=== PATIENT | female | born 1985 | race Caucasian/White ===

== ENCOUNTER 2017-11-20 08:46 | Emergency (ER) | payer OTHER ==
[~2017-11-20] VITALS: Ht 167.6 cm; Wt 117.9 kg
[~2017-11-20 08:46] MED LIST: Cleocin HCl300 MG PO; GLIP5 PO; LISI5 PO; MELO7.5 PO; METF500 PO; SERT100 PO; SIMV10 PO; TRAM50 PO
[2017-11-20] MEDS ORDERED: Naprosyn500 MG PO (09:22)
[2017-11-20] MEDS ORDERED: Amoxicillin875 MG PO (09:22)
== END 2017-11-20 09:45 | disposition home or self-care (01) ==
LOC: ER 08:46
DX: K08.89 Other specified disorders of teeth and supporting structures (principal); E11.9 Type 2 diabetes mellitus without complications; F32.9 Major depressive disorder, single episode, unspecified; Z79.84 Long term (current) use of oral hypoglycemic drugs; Z79.899 Other long term (current) drug therapy
CPT/HCPCS: 99283

== ENCOUNTER 2019-05-31 06:09 | Day surgery (SDC) | payer OTHER ==
[~2019-05-31] VITALS: Ht 167.6 cm; Wt 119.7 kg
[~2019-05-31 06:09] MED LIST changes: +Aldactone50 MG PO; +Amoxicillin875 MG PO; +DOCU100 PO; +Metformin HCl1000 MG PO; +Naprosyn500 MG PO
[2019-05-31] MEDS ORDERED: Juven1 EACH (07:08)
--- NOTE | 2019-05-31 07:36 | NUR ---
05/31/[address] NOTIFIED OF [facility] 256. 5 UNITS REGULAR INSULIN SUBQ GIVEN IN PREOP PER ORDERS.
--- NOTE | 2019-05-31 08:24 | NUR ---
05/31/19 0824 China Hadley CAPILLARY BLOOD GLUCOSE 210 @ 0822 AWARE NO FURTHER ORDERS AT THIS TIME
--- NOTE | 2019-05-31 10:28 | NUR ---
05/31/19 1028 Genesis Godinez PT USING INCENTIVE SPIROMETER TO 3000, SATS 98%. PAIN 6/10 IN ABDOMEN. POSTOP BLOOD SUGAR 265, MD HOFFMAN INFORMED. PT WILL TAKE METFOMIN AND GLIPIZIDE WHEN SHE GETS HOME.
== END 2019-05-31 10:58 | disposition home or self-care (01) ==
LOC: ORSCSDS 06:09
PROVIDERS: Obstetrics & Gynecology
PROC: 0U5F4ZZ Destruction of Cul-de-sac, Percutaneous Endoscopic Approach (ICD-10-PCS; principal; 2019-05-31 07:30)
DX: N92.1 Excessive and frequent menstruation with irregular cycle (principal); N94.6 Dysmenorrhea, unspecified; R10.2 Pelvic and perineal pain; N80.3 Endometriosis of pelvic peritoneum; E11.9 Type 2 diabetes mellitus without complications; E66.01 Morbid (severe) obesity due to excess calories; Z68.41 Body mass index [BMI] 40.0-44.9, adult; Z79.899 Other long term (current) drug therapy
CPT/HCPCS: 82947; J0171; J0690; J1815; J2250; J2405; J2704; J2710; J3010; J7120

== ENCOUNTER 2019-10-10 05:50 | Day surgery (SDC) | payer OTHER ==
[2019-10-08 13:12] LABS: BASOPHILS ABSOLUTE AUTO 0.04 K/mm3 (0.00-0.23); BASOPHILS PERCENT AUTO 0 % (0-2); EOSINOPHILS ABSOLUTE AUTO 0.14 K/mm3 (0.00-0.68); EOSINOPHILS PERCENT AUTO 1 % (0-6); Hematocrit 42.5 % (33.0-51.0); Hemoglobin 13.4 g/dL (11.5-16.0); IMMATURE GRAN ABSOLUTE AUTO 0.03 K/mm3 (0.00-0.10); IMMATURE GRAN PERCENT AUTO 0 % (0-1); LYMPHOCYTES ABSOLUTE AUTO 3.01 K/mm3 (0.84-5.20); LYMPHOCYTES PERCENT AUTO 27 % (21-46); MONOCYTES ABSOLUTE AUTO 0.87 K/mm3 (0.16-1.47); MONOCYTES PERCENT AUTO 8 % (4-13); Mean Corpuscular HGB 26.4 pg (26.0-34.0); Mean Corpuscular HGB Conc 31.5 g/dL (31.5-36.5); Mean Corpuscular Volume 84 fL (80-100); Mean Platelet Volume 10.1 fL (9.1-12.4); NEUTROPHILS ABSOLUTE AUTO 7.22 K/mm3 (1.96-9.15); NEUTROPHILS PERCENT AUTO 64 % (41-73); Platelet Count 303 K/mm3 (150-400); RDW Coefficient Variation 12.6 % (11.7-14.2); RDW Standard Deviation 38.5 fL (35.1-46.3); Red Blood Cell Count 5.08 M/mm3 (3.80-5.20); White Blood Cell Count 11.31 K/mm3 (4.00-11.30)
[2019-10-08 14:12] LABS: Anion Gap 9 mmol/L (6-16); Beta HCG, Quantitative, Serum <1 mIU/mL (0-3); Blood Urea Nitrogen 15 mg/dL (8-24); Bun/Creatinine Ratio 30.7 (12.0-20.0); CO2, Blood 23 mmol/L (21-32); Calcium, Blood 8.8 mg/dL (8.5-10.1); Chloride, Blood 102 mmol/L (98-108); Creatinine, Blood 0.49 mg/dL (0.40-1.00); Glomerular Filtration Rate >60 (60-); Glucose, Blood 263 mg/dL (70-99); Sodium, Blood 134 mmol/L (136-145)
[~2019-10-10] VITALS: Ht 167.6 cm; Wt 119.7 kg
[~2019-10-10 05:50] MED LIST changes: +BASAGLAR K100 UNIT/2 SC; +BUSP5 PO; +Juven1 EACH; +TRAZ50 PO
[2019-10-10] MEDS ORDERED: Glipizide ER5 MG PO (06:21)
--- NOTE | 2019-10-10 07:19 | NUR ---
Ambulatory in Day Surgery History, Chart, Medications and Allergies reviewed before start of procedure. Patient confirms NPO status and agrees with scheduled surgery.
--- NOTE | 2019-10-10 12:45 | NUR ---
TRANSFER FROM PACU TO SURGICAL PT ARRIVED TO SURGICAL FLOOR FROM PACU VIA STRETCHER AT 1220 TODAY; S/P ROBOTIC LAVH. ABD LAP SITES X4 C/D/I WITH NO DRAINAGE NOTED. IS A/O X4 WITH VSS. DENIES CP, N/V, DYSPNEA, OR N/T. ABLE TO WIGGLE FINGERS/TOES. TOLERATING CL AT THIS TIME. S/O ATTENTIVE AT BEDSIDE. HAS CALL LIGHT IN HAND AND DEMONSTRATED APPROPRIATE USE.
--- NOTE | 2019-10-10 18:00 | NUR ---
SHIFT SUMMARY POD 0 S/P ROBOTIC LAVH. IS A/O WITH VSS. GAUZE DRESSINGS TO ABD X4 C/D/I, NO ABD OR VAGINAL DRAINAGE NOTED. REPORTS PAIN AT TOLERABLE LEVEL WITH PO MEDICATION AND HEAT THERAPY. AMBULATED IN ROOM. TOLERATING REGULAR DIET, DENIES N/V. ALVARADO IN PLACE AND DRAINING CLEAR YELLOW URINE. CURRENTLY IN BED WATCHING TV WITH S/O. WILL CONT TO MONITOR AND GIVE REPORT TO ONCOMING RN.
--- NOTE | 2019-10-10 18:53 | NUR ---
WONDERLY NOTIFIED [facility] OF 356, OKAY TO GIVE PO GLIPIZIDE NOW AND NEW ORDER FOR SLIDING SCALE OBTAINED- SEE EMAR. WILL MEDICATE PER ORDER.
[2019-10-11 04:36] LABS: BASOPHILS ABSOLUTE AUTO 0.04 K/mm3 (0.00-0.23); BASOPHILS PERCENT AUTO 0 % (0-2); EOSINOPHILS ABSOLUTE AUTO 0.05 K/mm3 (0.00-0.68); EOSINOPHILS PERCENT AUTO 0 % (0-6); Hematocrit 35.1 % (33.0-51.0); IMMATURE GRAN ABSOLUTE AUTO 0.08 K/mm3 (0.00-0.10); IMMATURE GRAN PERCENT AUTO 1 % (0-1); LYMPHOCYTES ABSOLUTE AUTO 3.34 K/mm3 (0.84-5.20); LYMPHOCYTES PERCENT AUTO 22 % (21-46); MONOCYTES ABSOLUTE AUTO 1.15 K/mm3 (0.16-1.47); MONOCYTES PERCENT AUTO 8 % (4-13); Mean Corpuscular HGB 26.6 pg (26.0-34.0); Mean Corpuscular HGB Conc 31.3 g/dL (31.5-36.5); Mean Corpuscular Volume 85 fL (80-100); Mean Platelet Volume 10.1 fL (9.1-12.4); NEUTROPHILS ABSOLUTE AUTO 10.42 K/mm3 (1.96-9.15); NEUTROPHILS PERCENT AUTO 69 % (41-73); Platelet Count 275 K/mm3 (150-400); RDW Standard Deviation 39.8 fL (35.1-46.3); Red Blood Cell Count 4.14 M/mm3 (3.80-5.20); White Blood Cell Count 15.08 K/mm3 (4.00-11.30)
--- NOTE | 2019-10-11 07:51 | NUR ---
POD 1 S/P LAVH. PT VSS T/O NIGHT. DRESSINGS CDI, PT HAD NO SIG VAGINAL BLEEDING. PAIN MGD PER EMAR W/REP RELIEF. PT MORRIS REG PO., NO C/O N/V. ALVARADO CATH D/C THIS AM, AWAITING FIRST VOID. REPORT GIVEN TO DAY RN.
[2019-10-11] MEDS ORDERED: DOCU100 PO (15:03)
[2019-10-11] MEDS ORDERED: Estradiol2 MG PO (15:03)
[2019-10-11] MEDS ORDERED: Milk Of Ma400 MG/5 M PO (15:04)
[2019-10-11] MEDS ORDERED: IBUP800 PO (15:04)
[2019-10-11] MEDS ORDERED: Percocet 5-3251 EACH PO (15:04)
[2019-10-11] MEDS ORDERED: PROM25 PO (15:05)
[2019-10-11] MEDS ORDERED: SENN187 PO (15:05)
[2019-10-11] MEDS ORDERED: SIME80CH PO (15:06)
--- NOTE | 2019-10-11 16:55 | NUR ---
DISCHARGE: PACKET PRINTED, PT EDUCATED. GIVEN SCRIPTS. PT LEFT UNIT AT ABOUT 1545 VIA WHEELCHAIR WITH NANCY ASHBY.
== END 2019-10-11 16:14 | disposition home or self-care (01) ==
LOC: ORSCMMR 05:50 → LAB 07:30 → ORSCMMR 07:30 → ORD 07:30 → SURS 12:14 → ORSCMMR 10-11 16:14
PROVIDERS: Obstetrics & Gynecology
PROC: 0UT2FZZ Resection of Bilateral Ovaries, Via Natural or Artificial Opening With Percutaneous Endoscopic Assistance (ICD-10-PCS; principal; 2019-10-10 07:30)
PROC: 8E0W4CZ Robotic Assisted Procedure of Trunk Region, Percutaneous Endoscopic Approach (ICD-10-PCS; principal; 2019-10-10 07:30)
PROC: 0UT7FZZ Resection of Bilateral Fallopian Tubes, Via Natural or Artificial Opening With Percutaneous Endoscopic Assistance (ICD-10-PCS; principal; 2019-10-10 07:30)
PROC: 0UT9FZZ Resection of Uterus, Via Natural or Artificial Opening With Percutaneous Endoscopic Assistance (ICD-10-PCS; principal; 2019-10-10 07:30)
DX: N92.0 Excessive and frequent menstruation with regular cycle (principal); N80.9 Endometriosis, unspecified; R10.2 Pelvic and perineal pain; D25.2 Subserosal leiomyoma of uterus; N83.11 Corpus luteum cyst of right ovary; Z01.818 Encounter for other preprocedural examination; I10 Essential (primary) hypertension; E78.5 Hyperlipidemia, unspecified; E11.9 Type 2 diabetes mellitus without complications; E66.01 Morbid (severe) obesity due to excess calories; Z68.41 Body mass index [BMI] 40.0-44.9, adult; Z79.899 Other long term (current) drug therapy; Z79.84 Long term (current) use of oral hypoglycemic drugs
CPT/HCPCS: 58552; S2900; 36415; 80048; 82947; 84702; 85025; 86850; 86900; 86901; 88307; J0690; J1100; J1650; J1815; J1885; J2250; J2370; J2405; J2704; J3010; J7120

== ENCOUNTER → 2020-04-01 | Outpatient (CLI) | payer OTHER ==
[~2020-04-01] MED LIST changes: +Estradiol2 MG PO; +Glipizide ER5 MG PO; +IBUP800 PO; +Milk Of Ma400 MG/5 M PO; +PROM25 PO; +Percocet 5-3251 EACH PO; +SENN187 PO; +SIME80CH PO
== END | disposition home or self-care (01) ==
LOC: LAB EV 17:57 → LAB SHORT 17:57
DX: N39.0 Urinary tract infection, site not specified (principal)
CPT/HCPCS: 87077; 87086; 87186

== ENCOUNTER 2020-12-09 19:41 | Emergency (ER) | payer OTHER ==
[~2020-12-09] VITALS: Ht 167.6 cm; Wt 117.9 kg
== END 2020-12-09 20:38 | disposition home or self-care (01) ==
LOC: ER 19:41
DX: M79.631 Pain in right forearm (principal); E11.9 Type 2 diabetes mellitus without complications; Z79.4 Long term (current) use of insulin; Z79.3 Long term (current) use of hormonal contraceptives; Z79.899 Other long term (current) drug therapy
CPT/HCPCS: 99283

== ENCOUNTER 2021-01-08 04:21 | Emergency (ER) | payer OTHER ==
[~2021-01-08] VITALS: Ht 172.7 cm; Wt 122.5 kg
[2021-01-08 04:40] LABS: Calcium, Ionized (POC) 1.07 mmol/L (1.10-1.46); Chloride (POC) 98 mmol/L (98-108); Creatinine (POC) 1.1 mg/dL (0.6-1.0); Glucose (ISTAT POC) 402 mg/dL (70-99); Hemoglobin (POC) 15.6 g/dL (12.0-16.0); Potassium (POC) 4.7 mmol/L (3.5-5.5); Sodium (POC) 132 mmol/L (135-148); Total CO2 (POC) 23 mmol/L (21-32)
== END 2021-01-08 05:35 | disposition home or self-care (01) ==
LOC: ER 04:21
PROVIDERS: Emergency Medicine
DX: E11.65 Type 2 diabetes mellitus with hyperglycemia (principal); Z79.4 Long term (current) use of insulin; Z79.899 Other long term (current) drug therapy
CPT/HCPCS: 80047; 85014; 99283

== ENCOUNTER → 2022-07-07 | Outpatient (CLI) | payer OTHER ==
[2022-07-07 19:52] LABS: Alanine Aminotransfer (ALT/SGP 23 U/L (12-78); Albumin, Blood 3.8 g/dL (3.4-5.0); Albumin/Globulin Ratio 1.1 (0.8-1.8); Alk Phos 134 U/L (50-136); Anion Gap 5 mmol/L (6-16); Aspartate Aminotrans (AST/SGOT 14 U/L (12-37); Bilirubin, Total 0.3 mg/dL (0.1-1.0); Blood Urea Nitrogen 10 mg/dL (8-24); Bun/Creatinine Ratio 19.4 (12.0-20.0); CHOL/HDL RATIO 3.6; CO2, Blood 29 mmol/L (21-32); Calcium, Blood 9.2 mg/dL (8.5-10.1); Chloride, Blood 104 mmol/L (98-108); Cholesterol 193 mg/dL (50-200); Creatinine, Blood 0.52 mg/dL (0.40-1.00); Globulin, Blood 3.5 g/dL (2.2-4.0); Glomerular Filtration Rate 123 (60-); Glucose, Blood 145 mg/dL (70-99); HDL Cholesterol 54 mg/dL (>39); Low Density Lipoprotein Chol 110 mg/dL (0-110); Potassium, Blood 3.5 mmol/L (3.5-5.5); Sodium, Blood 138 mmol/L (136-145); Total Protein, Blood 7.3 g/dL (6.4-8.2); Triglycerides 147 mg/dL (30-140); Very Low Density Lipoprot Chol 29 mg/dL (6-28)
[2022-07-09 08:13] LABS: HIV AB/P24 AG SCREEN Non Reactive (Non Reactive)
== END | disposition home or self-care (01) ==
LOC: LAB SHORT 07:05 → LAB 07:05
PROVIDERS: Nurse Practitioner Family
DX: Z11.59 Encounter for screening for other viral diseases (principal); Z13.29 Encounter for screening for other suspected endocrine disorder; F33.1 Major depressive disorder, recurrent, moderate; E78.5 Hyperlipidemia, unspecified; E55.9 Vitamin D deficiency, unspecified
CPT/HCPCS: 80053; 80061; 82306; 83036; 84443; 86803; 87389

== ENCOUNTER → 2022-07-26 | Outpatient (CLI) | payer OTHER ==
[2022-07-26 12:09] LABS: BASOPHILS ABSOLUTE AUTO 0.06 K/mm3 (0.00-0.23); BASOPHILS PERCENT AUTO 0 % (0-2); EOSINOPHILS ABSOLUTE AUTO 0.07 K/mm3 (0.00-0.68); EOSINOPHILS PERCENT AUTO 0 % (0-6); Hematocrit 41.7 % (33.0-51.0); Hemoglobin 13.6 g/dL (11.5-16.0); IMMATURE GRAN ABSOLUTE AUTO 0.07 K/mm3 (0.00-0.10); IMMATURE GRAN PERCENT AUTO 0 % (0-1); LYMPHOCYTES ABSOLUTE AUTO 1.99 K/mm3 (0.84-5.20); LYMPHOCYTES PERCENT AUTO 11 % (21-46); MONOCYTES ABSOLUTE AUTO 1.08 K/mm3 (0.16-1.47); MONOCYTES PERCENT AUTO 6 % (4-13); Mean Corpuscular HGB 26.1 pg (26.0-34.0); Mean Corpuscular HGB Conc 32.6 g/dL (31.5-36.5); Mean Corpuscular Volume 80 fL (80-100); Mean Platelet Volume 10.9 fL (9.1-12.4); NEUTROPHILS ABSOLUTE AUTO 14.89 K/mm3 (1.96-9.15); NEUTROPHILS PERCENT AUTO 82 % (41-73); Platelet Count 327 K/mm3 (150-400); RDW Coefficient Variation 13.6 % (11.7-14.2); RDW Standard Deviation 38.5 fL (35.1-46.3); Red Blood Cell Count 5.22 M/mm3 (3.80-5.20); White Blood Cell Count 18.16 K/mm3 (4.00-11.30)
[2022-07-26 12:23] LABS: Albumin, Blood 3.8 g/dL (3.4-5.0); Albumin/Globulin Ratio 0.9 (0.8-1.8); Bilirubin, Total 0.4 mg/dL (0.1-1.0); Bun/Creatinine Ratio 16.4 (12.0-20.0); Calcium, Blood 9.1 mg/dL (8.5-10.1); Creatinine, Blood 0.73 mg/dL (0.40-1.00); Globulin, Blood 4.2 g/dL (2.2-4.0); Potassium, Blood 3.9 mmol/L (3.5-5.5)
== END ==
LOC: LAB 12:05 → LAB SHORT 12:05
PROVIDERS: Physician Assistant Medical
DX: R10.31 Right lower quadrant pain (principal)
CPT/HCPCS: 80053; 85025

== ENCOUNTER 2025-05-07 00:26 | Inpatient (IN) | payer OTHER ==
[2025-05-07] VITALS (17 sets, daily range): BP systolic 65–143; BP diastolic 40–98
[~2025-05-07] VITALS: Ht 167.6 cm; Wt 117.5 kg
[2025-05-07 00:58] LABS: Hematocrit 47.9 % (33.0-51.0); Hemoglobin 15.0 g/dL (11.5-16.0); Mean Corpuscular HGB Conc 31.3 g/dL (31.5-36.5); Mean Corpuscular Volume 91 fL (80-100); NRBC ABSOLUTE 0.00 K/mm3 (0.00-0.02); NRBC Auto 0.0 /100 WBC (0.0-0.2); Platelet Count 522 K/mm3 (150-400); RDW Coefficient Variation 11.5 % (11.7-14.2); RDW Standard Deviation 38.5 fL (35.1-46.3)
[2025-05-07 01:17] LABS: BAND PERCENT MAN 5 % (0-8); BASOPHILS ABSOLUTE MAN 0.00 K/mm3 (0.00-0.23); BASOPHILS PERCENT MAN 0 % (0-2); EOSINOPHILS ABSOLUTE MAN 0.00 K/mm3 (0.00-0.68); EOSINOPHILS PERCENT MAN 0 % (0-6); LYMPHOCYTES ABSOLUTE MAN 2.98 K/mm3 (0.84-5.20); LYMPHOCYTES PERCENT MAN 7 % (21-46); METAMYELOCYTE ABSOLUTE MAN 0.42 K/mm3 (0.00-0.00); METAMYELOCYTE PERCENT MAN 1 % (0-0); MONOCYTES ABSOLUTE MAN 2.98 K/mm3 (0.16-1.47); MONOCYTES PERCENT MAN 7 % (4-13); MYELOCYTE ABSOLUTE MAN 1.27 K/mm3 (0.00-0.00); MYELOCYTE PERCENT MAN 3 % (0-0); NEUTROPHILS ABSOLUTE MAN 34.94 K/mm3 (1.96-9.15); SEG NEUTROPHILS PERCENT MAN 77 % (41-73)
[2025-05-07 01:28] LABS: Magnesium, Blood 2.2 mg/dL (1.6-2.4)
[2025-05-07 01:28] LABS: pH Blood Venous < 6.81 (7.34-7.37)
[2025-05-07 01:30] LABS: Alanine Aminotransfer (ALT/SGP 48.0 U/L (12-78); Albumin, Blood 3.1 g/dL (3.4-5.0); Aspartate Aminotrans (AST/SGOT 57.0 U/L (12-37); Blood Urea Nitrogen 21.0 mg/dL (8-24); Calcium, Blood 7.9 mg/dL (8.5-10.1); Chloride, Blood 96.0 mmol/L (98-108); Glucose, Blood 577.0 mg/dL (70-99); Potassium, Blood 4.6 mmol/L (3.5-5.5); Sodium, Blood 125.0 mmol/L (136-145)
[2025-05-07] MEDS ORDERED: Insulin Human Regular 100 UNIT in NS 100 ML IV SCH (01:45)
[2025-05-07 02:00] LABS: Albumin/Globulin Ratio 0.6 (0.8-1.8); Anion Gap 30.0 mmol/L (3-11); Bilirubin, Total 0.5 mg/dL (0.1-1.0); CO2, Blood 4.0 mmol/L (21-32); Creatinine, Blood 0.58 mg/dL (0.40-1.00); Globulin, Blood 5.0 g/dL (2.2-4.0); Total Protein, Blood 8.1 g/dL (6.4-8.2)
[2025-05-07] MEDS ORDERED: D5W-1/2NS 1,000 ML IV PRN (03:30)
--- NOTE | 2025-05-07 04:02 | NUR ---
REPORT RECEIVED FROM HEARING AID FITTERBRYAN GOINS WHO WILL BE BRINGING PT TO ICU 9 VIA RDAMARISCOTTA.
--- NOTE | 2025-05-07 04:10 | NUR ---
PT ARRIVED TO ICU RM 9 VIA GURNEY, ACCOMPANIED BY ED RN. PT A&OX4, ABLE TO FOLLOW COMMANDS AND COMMUNICATE APPROPRIATELY WITH STAFF. PT APPEARS ANXIOUS, WILL TOSS AND TURN IN BED REPEATEDLY, REQUIRING ASSISTANCE FROM STAFF SHE GETS HERSELF TANGLED IN THE LINES/CORDS. PT ON RA. SATS >95%. DENIES SOB, THOUGH KUSS[place] RESPIRATIONS PRESENT. PT ENDORSES NAUSEA, NO ACTIVE VOMITING. ABD DISTENDED, SOFT, BT HYPOACTIVE X4. PER PT, SHE HAS NOT EATEN OR DRANK ANYTHING X3 DAYS. LAST BM 05/04/25 PER PT. PER ED RN, PT HAD NOT VOIDED THOUGH REPORTED SHE FELT SHE NEEDED TO GO. PT BLADDER SCANNED AND FOUND TO HAVE >900ML OF RETAINED URINE. PT ENCOURAGED TO VOID BUT WAS UNABLE TO. RN EDUCATED PT ON NEED TO DRAIN BLADDER AND ON STRAIGHT CATHETERIZATION. PT AGREEABLE TO STRAIGHT CATH. 1,100MLS URINE DRAINED FROM PTS BLADDER VIA STRAIGHT CATH. PIV TO BILAT ACS. ON ARRIVAL TO ICU 9, PT HAD KCL INFUSING AT 200ML/HR AND INSULIN INFUSING AT 11.4 UNIT/HR. PT SHARED WITH RN THAT SHE HAS NOT BEEN MANAGING HER SUGARS NOR TAKING ANY OF HER MEDICATIONS FOR MORE THAN A YEAR NOW, DUE TO HER LOSS OF MEDICAL INSURANCE. FAMILY ACCOMPANIED PT TO HOSPITAL BUT LEFT WHEN PT WAS TRANSPORTED TO ICU. THIS RN TO CONTINUE TO MONITOR AND REPORT ANY ACUTE CHANGES TO PROVIDER.
[2025-05-07 05:00] LABS: Anion Gap 25.0 mmol/L (3-11); Blood Urea Nitrogen 22.0 mg/dL (8-24); CO2, Blood 6.0 mmol/L (21-32); Calcium, Blood 7.9 mg/dL (8.5-10.1); Chloride, Blood 97.0 mmol/L (98-108); Creatinine, Blood 0.59 mg/dL (0.40-1.00); Glucose, Blood 476.0 mg/dL (70-99); Potassium, Blood 4.4 mmol/L (3.5-5.5); Sodium, Blood 124.0 mmol/L (136-145)
[2025-05-07] MEDS ORDERED: Ondansetron HCl 2 MG / ML 2ML Vial IV PRN (05:10)
[2025-05-07] MEDS ORDERED: NS 250 ML IV PRN ×2 (05:50→10:05)
[2025-05-07 06:08] LABS: Source, Urine Clean Catch
[2025-05-07 06:12] LABS: Bilirubin, Urine Neg (Neg); Color, Urine Yellow (P-Yellow); Glucose Qualitative, Urine 4+ (Neg); Ketones, Urine 4+ (Neg); Leukocyte Esterase, Urine Neg (Neg); Protein, Urine 3+ (Neg); Specific Gravity, Urine 1.025 (1.003-1.022); Urobilinogen, Urine NORM (Normal)
[2025-05-07 06:23] LABS: White Blood Cells, Urine 0-2 /hpf (0-5)
[2025-05-07 08:19] LABS: pH Blood Venous 6.87 (7.34-7.37)
[2025-05-07 08:29] LABS: Hematocrit 45.7 % (33.0-51.0); Hemoglobin 14.6 g/dL (11.5-16.0); Mean Corpuscular HGB Conc 31.9 g/dL (31.5-36.5); Mean Corpuscular Volume 90 fL (80-100); NRBC ABSOLUTE 0.06 K/mm3 (0.00-0.02); NRBC Auto 0.1 /100 WBC (0.0-0.2); Platelet Count 309 K/mm3 (150-400); RDW Coefficient Variation 11.5 % (11.7-14.2); RDW Standard Deviation 37.4 fL (35.1-46.3)
[2025-05-07] MEDS ORDERED: Cetylpyridinium Chloride 1 EA MISC MT SCH ×2 (08:35→10:35)
[2025-05-07 08:44] LABS: Prothrombin Time Results 13.5 Sec (9.7-11.5)
[2025-05-07] MEDS ORDERED: NS 1,000 ML IV SCH ×2 (08:45→11:00)
[2025-05-07 08:54] LABS: Magnesium, Blood 1.9 mg/dL (1.6-2.4); Phosphorus, Blood 4.1 mg/dL (2.5-4.9)
[2025-05-07 08:55] LABS: BAND PERCENT MAN 9 % (0-8); BASOPHILS ABSOLUTE MAN 0.00 K/mm3 (0.00-0.23); BASOPHILS PERCENT MAN 0 % (0-2); EOSINOPHILS ABSOLUTE MAN 0.56 K/mm3 (0.00-0.68); EOSINOPHILS PERCENT MAN 1 % (0-6); LYMPHOCYTES ABSOLUTE MAN 9.62 K/mm3 (0.84-5.20); LYMPHOCYTES PERCENT MAN 17 % (21-46); METAMYELOCYTE ABSOLUTE MAN 0.56 K/mm3 (0.00-0.00); METAMYELOCYTE PERCENT MAN 1 % (0-0); MONOCYTES ABSOLUTE MAN 6.79 K/mm3 (0.16-1.47); MONOCYTES PERCENT MAN 12 % (4-13); MYELOCYTE ABSOLUTE MAN 0.56 K/mm3 (0.00-0.00); MYELOCYTE PERCENT MAN 1 % (0-0); NEUTROPHILS ABSOLUTE MAN 38.50 K/mm3 (1.96-9.15); SEG NEUTROPHILS PERCENT MAN 59 % (41-73)
[2025-05-07] MEDS ORDERED: Enoxaparin 40 MG/0.4 ML SYR SC SCH (09:00)
[2025-05-07] MEDS ORDERED: EPINEPHrine HCL 4 MG in NS 250 ML IV SCH (09:30)
[2025-05-07 09:34] LABS: U Amphetamine Screen Not Detected; U Barbituate Screen Not Detected; U Benzodiazapine Screen Not Detected; U Methamphetamine Screen Not Detected
[2025-05-07 09:35] LABS: U Buprenorphine Screen Not Detected; U Cannabinoids Screen Not Detected; U Cocaine Screen Not Detected; U Methadone Screen Not Detected; U Opiates Screen Not Detected; U Oxycodone Screen Not Detected; U Phencyclidine Screen Not Detected
--- NOTE | 2025-05-07 09:39 | NUR ---
CALLED FRIEND/ROOM MATE, ROXY RASHID AT [phone]. RCV'D INFORMATION FOR PT'S FATHER, NAREN TAPIAG [phone]. FATHER LIVES IN [place], HE IS ON HIS WAY IN NOW, ETA 1300. UPDATE PROVIDED TO ANUPAMA RE: INTUBATION AND SECOND ROUND OF CPR THIS MORNING. UPDATE PROVIDED TO CHAPLAIN CARMEN, PRIMARY RN AND SHEET METAL MECHANIC.
--- NOTE | 2025-05-07 10:00 | NUR ---
UPDATE: RECEIVED BSR AT 0700 FROM NOC RN. PT STATES SHE JUST WANTS TO SLEEP, FOLLOWS COMMANDS, AND ANSWERS QUESTIONS. PT WAS CONSTANTLY TRYING TO LAY ON STOMACH AND IV'S TO BILAT AC'S WERE POSITIONAL AND UNABLE TO INFUSE. GOT PT UNTANGLED FROM GOWN AND WIRES THEN REDRESSED IV'S AND PLACED ARM BOARDS IN HOPES PT COULD RECEIVE IVF AND INSULIN GTT. DIFFICULT TO KNOW HOW TO TITRATE INSULIN PUMPS HAD BEEN CONSTANTLY ALARMING AND STOPPED SINCE SHIFT CHANGE UNTIL 0730. ANOTHER RN WAS FINISHING UP GETTING A POWERGLIDE FOR BETTER ACCESS WHEN PT DAVID'D DOWN AND BECAME UNRESPONSIVE. SEE CODE BLUE SHEET. ROSC ACHIEVED BUT PT STARTED TO DAVID DOWN AGAIN AND ETCO2 TRENDING DOWN. DR. ERAZO AT BEDSIDE PREPARING TO PLACE CENTRAL LINE AND A-LINE WHEN PT CODED FOR THE SECOND TIME. SEE CODE BLUE SHEET. PT STARTED ON DOPAMINE, LEVOPHED, AND EPI GTT. SEE FLOWSHEET. INTUBATED DURING FIRST CODE. PALLIATIVE CARE RN TRYING TO REACH FAMILY. PT UNRESPONSIVE AFTER CODES, NO SEDATION.
[2025-05-07] MEDS ORDERED: NS 500 ML IV ONE (10:06)
[2025-05-07] MEDS ORDERED: Vasopressin 20 UNITS in NS 100 ML IV SCH (10:15)
[2025-05-07 10:21] LABS: Alanine Aminotransfer (ALT/SGP 66.0 U/L (12-78); Albumin, Blood 2.3 g/dL (3.4-5.0); Albumin/Globulin Ratio 0.6 (0.8-1.8); Anion Gap 22.0 mmol/L (3-11); Aspartate Aminotrans (AST/SGOT 104.0 U/L (12-37); Bilirubin, Total 0.6 mg/dL (0.1-1.0); Blood Urea Nitrogen 26.0 mg/dL (8-24); CO2, Blood 7.0 mmol/L (21-32); Calcium, Blood 10.2 mg/dL (8.5-10.1); Chloride, Blood 105.0 mmol/L (98-108); Creatinine, Blood 0.58 mg/dL (0.40-1.00); Globulin, Blood 4.1 g/dL (2.2-4.0); Glucose, Blood 352.0 mg/dL (70-99); Potassium, Blood 5.4 mmol/L (3.5-5.5); Sodium, Blood 129.0 mmol/L (136-145); Total Protein, Blood 6.4 g/dL (6.4-8.2)
[2025-05-07 10:49] LABS: pH Blood Arterial 6.94 (7.35-7.45)
[2025-05-07 10:52] LABS: Influenza A, PCR Negative (NEGATIVE); Influenza B, PCR Negative (NEGATIVE); Resp Syncytial Virus, PCR Negative (NEGATIVE); SARS-Cov-2 (COVID-19) PCR, MMC Negative (NEGATIVE)
[2025-05-07] MEDS ORDERED: Sodium Bicarb 8.4% 50 mEq Syringe IV ONE ×3 (10:55→15:53)
[2025-05-07] MEDS ORDERED: Pantoprazole Sodium 40 MG Injection IV SCH (11:00)
[2025-05-07] MEDS ORDERED: Sodium Bicarb 8.4% 1 MEQ/ML 50 ML Vial IV ONE (11:00)
[2025-05-07] MEDS ORDERED: Sodium Bicarb 8.4% Inj 150 MEQ in Dextrose 5% 1,000 ML IV SCH (11:00)
[2025-05-07] MEDS ORDERED: Vancomycin (Pharmacy Consult) IV SCH (11:30)
[2025-05-07] MEDS ORDERED: Amiodarone HCl 450 MG in NS 250 ML IV SCH (11:30)
[2025-05-07 11:39] LABS: Hematocrit 44.8 % (33.0-51.0); Hemoglobin 14.8 g/dL (11.5-16.0); Mean Corpuscular HGB Conc 33.0 g/dL (31.5-36.5); Mean Corpuscular Volume 87 fL (80-100); NRBC ABSOLUTE 0.00 K/mm3 (0.00-0.02); NRBC Auto 0.0 /100 WBC (0.0-0.2); Platelet Count 392 K/mm3 (150-400); RDW Coefficient Variation 11.6 % (11.7-14.2); RDW Standard Deviation 37.3 fL (35.1-46.3)
[2025-05-07] MEDS ORDERED: Hydrogen Peroxide 1.5 % Solution MT SCH ×2 (12:00)
[2025-05-07 12:22] LABS: Albumin, Blood 2.3 g/dL (3.4-5.0); Anion Gap 20 mmol/L (3-11); Blood Urea Nitrogen 27 mg/dL (8-24); CO2, Blood 9 mmol/L (21-32); Calcium, Blood 7.7 mg/dL (8.5-10.1); Chloride, Blood 106 mmol/L (98-108); Creatinine, Blood 0.57 mg/dL (0.40-1.00); Glucose, Blood 456 mg/dL (70-99); Phosphorus, Blood 3.7 mg/dL (2.5-4.9); Potassium, Blood 2.8 mmol/L (3.5-5.5); Sodium, Blood 132 mmol/L (136-145)
[2025-05-07 12:24] LABS: BAND PERCENT MAN 11 % (0-8); BASOPHILS ABSOLUTE MAN 0.59 K/mm3 (0.00-0.23); BASOPHILS PERCENT MAN 1 % (0-2); EOSINOPHILS ABSOLUTE MAN 0.00 K/mm3 (0.00-0.68); EOSINOPHILS PERCENT MAN 0 % (0-6); LYMPHOCYTES ABSOLUTE MAN 9.54 K/mm3 (0.84-5.20); LYMPHOCYTES PERCENT MAN 16 % (21-46); METAMYELOCYTE ABSOLUTE MAN 2.98 K/mm3 (0.00-0.00); METAMYELOCYTE PERCENT MAN 5 % (0-0); MONOCYTES ABSOLUTE MAN 2.98 K/mm3 (0.16-1.47); MONOCYTES PERCENT MAN 5 % (4-13); MYELOCYTE ABSOLUTE MAN 1.19 K/mm3 (0.00-0.00); MYELOCYTE PERCENT MAN 2 % (0-0); NEUTROPHILS ABSOLUTE MAN 42.33 K/mm3 (1.96-9.15); SEG NEUTROPHILS PERCENT MAN 60 % (41-73)
[2025-05-07] MEDS ORDERED: Albumin (Human) 25gm/100ml 100 ML IV SCH (12:30)
[2025-05-07 13:13] LABS: pH Blood Arterial 7.09 (7.35-7.45)
[2025-05-07] MEDS ORDERED: HYDROmorphone HCl/Pf 1MG SYR IV PRN (14:45)
[2025-05-07 14:48] LABS: Glucose, Blood 566 mg/dL (70-99)
[2025-05-07] MEDS ORDERED: Midazolam HCl 5 MG / ML 5ML Vial IV PRN (14:50)
[2025-05-07 15:13] LABS: pH Blood Arterial 7.22 (7.35-7.45)
--- NOTE | 2025-05-07 15:18 | NUR ---
SPOKE WITH DR. ERAZO ABOUT PT ON INSULIN GTT WITH LOW POTASSIUM AND ON SODIUM BICARB GTT THAT HAS D5 IN IT. DR. ERAZO WANTS TO KEEP INSULIN WHERE IT IS RIGHT NOW AND DECREASE SODIUM BICARB THEN KEEP MONITORING GLUCOSE TO MAKE SURE IT IS TRENDING DOWN.
--- NOTE | 2025-05-07 15:26 | NUR ---
Pt. is intubated and mostly not responsive. Father is present and welcomes my visit. Facilitate a short life review and establish some rapport. Other visitors arrived, Pts. father verbalized gratitude for the spiritual care visit,
[2025-05-07] MEDS ORDERED: Magnesium Sulfate 500 MG / ML 2ML Vial IV ONE (15:53)
[2025-05-07] MEDS ORDERED: Amiodarone HCl 50 MG / ML 3 ML Amp IV ONE (15:53)
[2025-05-07] MEDS ORDERED: Dextrose 25% 10ml Syringe (Infant) IV ONE (15:53)
[2025-05-07] MEDS ORDERED: Rocuronium Bromide 10 MG/ML 5ML Injection IV ONE (15:53)
[2025-05-07] MEDS ORDERED: Etomidate 2MG / ML 10ML Vial IV ONE (15:53)
[2025-05-07] MEDS ORDERED: DOPamine 400 MG/Dextrose 250 ML Bag IV ONE (15:53)
[2025-05-07 16:20] LABS: Glucose, Blood 580 mg/dL (70-99)
[2025-05-07 16:25] LABS: Glucose, Blood 592 mg/dL (70-99)
[2025-05-07 17:10] LABS: pH Blood Arterial 7.34 (7.35-7.45)
[2025-05-07 18:04] LABS: Glucose, Blood 574.0 mg/dL (70-99)
--- NOTE | 2025-05-07 18:06 | NUR ---
SUMMARY PT SUDDENLY CODED THIS AM 2 DIFFERENT TIMES. INTUBATED DURING CODE. HAS BEEN ON MULTIPLE PRESSORS THAT ARE TITRATING DOWN THE DAY GOES ON (SEE FLOWSHEET). THIS AFTERNOON PT HAS BECOME RESPONSIVE, WILL NOD YES OR NO APPROPRIATELY TO QUESTIONS, RECOGNIZES FAMILY AND FRIENDS AT BEDSIDE, MOVES EXTREMITIES ON COMMAND. PT WAS C/O OF ANXIETY AND WAS PLACED ON PROPOFOL. DENIES PAIN MULTIPLE TIMES. DID TELL DR. AMIN SHE HAD CP WHILE AT HOME. DR. AMIN WAS PRESENT AFTER CODES AND REVIEWED EKG'S WITH DR. ERAZO AT BEDSIDE. CENTRAL LINE AND A-LINE TO L GROIN. NOW TITRATING INSULIN GTT AGAIN WITH POTASSIUM REPLACEMENT INFUSING PER DR. ERAZO. DAD AT BEDSIDE UPDATED T/O.
[2025-05-07] MEDS ORDERED: Midazolam HCl 1MG / ML 2ML Vial IV PRN (18:45)
[2025-05-07 19:33] LABS: pH Blood Arterial 7.41 (7.35-7.45)
[2025-05-07 20:08] LABS: C-REACTIVE PROTEIN, EXT RANGE 8.880 mg/dL (0.000-0.300)
[2025-05-07 20:15] LABS: Albumin, Blood 2.9 g/dL (3.4-5.0); Anion Gap 13 mmol/L (3-11); Blood Urea Nitrogen 31 mg/dL (8-24); CO2, Blood 19 mmol/L (21-32); Calcium, Blood 7.3 mg/dL (8.5-10.1); Chloride, Blood 103 mmol/L (98-108); Creatinine, Blood 0.74 mg/dL (0.40-1.00); Glucose, Blood 489 mg/dL (70-99); Potassium, Blood 2.3 mmol/L (3.5-5.5); Sodium, Blood 133 mmol/L (136-145)
[2025-05-07 20:16] LABS: Phosphorus, Blood 0.5 mg/dL (2.5-4.9)
[2025-05-07] MEDS ORDERED: Potassium Phosphate Dibasic 30 MM in Dextrose 5% 500 ML IV STA (20:32)
[2025-05-07 21:42] LABS: Thyroid Stimulating Hormone 0.57 uIU/mL (0.360-4.800)
[2025-05-07 21:48] LABS: pH Blood Arterial 7.43 (7.35-7.45)
[2025-05-07 23:20] LABS: Anion Gap 12.0 mmol/L (3-11); Blood Urea Nitrogen 28.0 mg/dL (8-24); CO2, Blood 24.0 mmol/L (21-32); Calcium, Blood 6.8 mg/dL (8.5-10.1); Chloride, Blood 103.0 mmol/L (98-108); Creatinine, Blood 0.85 mg/dL (0.40-1.00); Glucose, Blood 414.0 mg/dL (70-99); Potassium, Blood 2.5 mmol/L (3.5-5.5); Sodium, Blood 136.0 mmol/L (136-145)
[2025-05-08 03:49] LABS: BASOPHILS ABSOLUTE AUTO 0.04 K/mm3 (0.00-0.23); BASOPHILS PERCENT AUTO 0 % (0-2); EOSINOPHILS ABSOLUTE AUTO 0.11 K/mm3 (0.00-0.68); EOSINOPHILS PERCENT AUTO 1 % (0-6); Hematocrit 34.6 % (33.0-51.0); Hemoglobin 12.4 g/dL (11.5-16.0); IMMATURE GRAN ABSOLUTE AUTO 0.35 K/mm3 (0.00-0.10); IMMATURE GRAN PERCENT AUTO 2 % (0-1); LYMPHOCYTES ABSOLUTE AUTO 1.66 K/mm3 (0.84-5.20); LYMPHOCYTES PERCENT AUTO 8 % (21-46); MONOCYTES ABSOLUTE AUTO 2.16 K/mm3 (0.16-1.47); MONOCYTES PERCENT AUTO 10 % (4-13); Mean Corpuscular HGB Conc 35.8 g/dL (31.5-36.5); NEUTROPHILS ABSOLUTE AUTO 17.79 K/mm3 (1.96-9.15); NEUTROPHILS PERCENT AUTO 80 % (41-73); NRBC ABSOLUTE 0.03 K/mm3 (0.00-0.02); NRBC Auto 0.1 /100 WBC (0.0-0.2); Platelet Count 271 K/mm3 (150-400); RDW Coefficient Variation 11.7 % (11.7-14.2); RDW Standard Deviation 33.9 fL (35.1-46.3)
[2025-05-08 03:52] LABS: Mean Corpuscular Volume 80 fL (80-100)
[2025-05-08 04:29] LABS: Alanine Aminotransfer (ALT/SGP 217.0 U/L (12-78); Albumin, Blood 2.5 g/dL (3.4-5.0); Albumin/Globulin Ratio 1.0 (0.8-1.8); Anion Gap 11.0 mmol/L (3-11); Aspartate Aminotrans (AST/SGOT 301.0 U/L (12-37); Bilirubin, Total 0.7 mg/dL (0.1-1.0); Blood Urea Nitrogen 27.0 mg/dL (8-24); CO2, Blood 25.0 mmol/L (21-32); Calcium, Blood 6.8 mg/dL (8.5-10.1); Chloride, Blood 103.0 mmol/L (98-108); Creatinine, Blood 0.86 mg/dL (0.40-1.00); Globulin, Blood 2.6 g/dL (2.2-4.0); Glucose, Blood 314.0 mg/dL (70-99); Phosphorus, Blood 0.5 mg/dL (2.5-4.9); Potassium, Blood 2.8 mmol/L (3.5-5.5); Sodium, Blood 136.0 mmol/L (136-145); Total Protein, Blood 5.1 g/dL (6.4-8.2)
[2025-05-08] MEDS ORDERED: Potassium Phosphate Dibasic 30 MM in Dextrose 5% 500 ML IV STA (04:44)
[2025-05-08] MEDS ORDERED: Potassium Chl 20MEQ/Water100ML 100 ML IV SCH (05:25)
[2025-05-08] MEDS ORDERED: D5W-1/2NS 1,000 ML IV PRN (05:50)
[2025-05-08] MEDS ORDERED: Calcium Chloride 10% 2,000 MG in NS 100 ML IV ONE (06:45)
[2025-05-08] MEDS ORDERED: Magnesium Sulf 2 GM/Water 50ML 50 ML IV ONE (07:50)
[2025-05-08] MEDS ORDERED: Insulin NPH 100 Unit / ML 10ML Vial SC SCH (09:00)
[2025-05-08] MEDS ORDERED: CefTRIAXone Sodium 2,000 MG in NS 100 ML IV SCH (09:00)
--- NOTE | 2025-05-08 09:26 | NUR ---
CALLED DR. DUMONT THIS AM ABOUT CRITICAL MAG LEVEL AND INCREASE OF INSULIN GTT TO 37.5 UNITS/HR. NEW ORDERS RECEIVED. DR. DUMONT AT BEDSIDE WITHIN HALF HOUR. DKA HAS RESOLVED, D5 1/2NS STOPPED, NPH STARTED, AND INSULIN GTT TURNED DOWN TO 25 UNITS/HR. WILL CONTINUE TO MONITOR GLUCOSE Q 1 HR AND TITRATE INSULIN GTT. AMIODORONE STOPPED WELL.
--- NOTE | 2025-05-08 09:52 | NUR ---
EXTUBATION Pt extubated to room air at 0951. SpO2 97%. RR 20. Pt nodding head yes/no appropriately to answer questions. Restraints removed.
[2025-05-08] MEDS ORDERED: NS 500 ML IV ONE (11:23)
--- NOTE | 2025-05-08 11:51 | NUR ---
"SPiritual Care | Family Request Met with family and bedside. Pt. is intubate and was currently under sedation. Facilitated a life review which focused upon the events that led to the Pts. admission. Listened with empathy and interest. Family is very engaged and displayed evidence of genuine support. Prayed over the Pt. and prayed for the family. Family verbalized gratitude for the spiritual care visit, and welcomed this health and wellness sales consultant to return."
[2025-05-08] MEDS ORDERED: Colchicine 0.6 MG TAB PO SCH (13:00)
[2025-05-08 13:49] LABS: pH Blood Arterial 7.54 (7.35-7.45)
[2025-05-08 14:29] LABS: Magnesium, Blood 1.6 mg/dL (1.6-2.4)
[2025-05-08 14:30] LABS: Anion Gap 11.0 mmol/L (3-11); Blood Urea Nitrogen 25.0 mg/dL (8-24); CO2, Blood 24.0 mmol/L (21-32); Calcium, Blood 7.7 mg/dL (8.5-10.1); Chloride, Blood 105.0 mmol/L (98-108); Creatinine, Blood 1.04 mg/dL (0.40-1.00); Glucose, Blood 136.0 mg/dL (70-99); Phosphorus, Blood 2.1 mg/dL (2.5-4.9); Potassium, Blood 4.0 mmol/L (3.5-5.5); Sodium, Blood 136.0 mmol/L (136-145)
[2025-05-08] MEDS ORDERED: Magnesium Sulf 2 GM/Water 50ML 50 ML IV STA (15:01)
[2025-05-08] MEDS ORDERED: Insulin Regular 100 UNIT/ML 10ML Vial SC SCH (16:00)
--- NOTE | 2025-05-08 18:31 | NUR ---
SUMMARY PT INTUBATED AND SEDATED. DURING SEDATION VACATION PT IS ABLE TO NOD YES OR NO AND MOVES ALL EXTREMITIES. PT NODDED YES TO PAIN THIS EVENING, DILAUDID GIVEN. HAVE BEEN REPLACING POTASSIUM, MAG, AND PHOS TODAY. OFF INSULIN GTT AND NOW ON SS COVERAGE AND NPH. TITRATING PRESSORS DOWN (SEE FLOWSHEET). ONLY ON LEVOPHED NOW. TUBE FEEDING STARTED AFTER PHOS WAS REPLACED.
[2025-05-08] MEDS ORDERED: Cetylpyridinium Chloride 1 EA MISC MT SCH (20:00)
[2025-05-08 20:10] LABS: Magnesium, Blood 2.0 mg/dL (1.6-2.4)
[2025-05-08 20:33] LABS: Anion Gap 15.0 mmol/L (3-11); Blood Urea Nitrogen 29.0 mg/dL (8-24); CO2, Blood 23.0 mmol/L (21-32); Calcium, Blood 8.0 mg/dL (8.5-10.1); Chloride, Blood 101.0 mmol/L (98-108); Creatinine, Blood 1.22 mg/dL (0.40-1.00); Glucose, Blood 300.0 mg/dL (70-99); Potassium, Blood 4.6 mmol/L (3.5-5.5); Sodium, Blood 134.0 mmol/L (136-145)
[2025-05-08 20:37] LABS: Phosphorus, Blood 5.1 mg/dL (2.5-4.9)
[2025-05-08] MEDS ORDERED: Insulin Human Regular 100 UNIT in NS 100 ML IV SCH (20:45)
[2025-05-08] MEDS ORDERED: Nystatin 100,000 Unit/ML Susp 5 ML UDC PO SCH (21:00)
[2025-05-08] MEDS ORDERED: Pantoprazole Sodium 40 MG Injection IV SCH (21:00)
[2025-05-08 22:13] LABS: Vancomycin, Trough 30.1 ug/mL (5.0-10.0)
[2025-05-08 23:15] LABS: SERUM, C-PEPTIDE 0.2 ng/mL (0.5-3.3)
[2025-05-09] VITALS (13 sets, daily range): BP systolic 104–137; BP diastolic 67–84
[2025-05-09 04:23] LABS: BASOPHILS ABSOLUTE AUTO 0.07 K/mm3 (0.00-0.23); BASOPHILS PERCENT AUTO 0 % (0-2); EOSINOPHILS ABSOLUTE AUTO 0.67 K/mm3 (0.00-0.68); EOSINOPHILS PERCENT AUTO 3 % (0-6); Hematocrit 33.2 % (33.0-51.0); Hemoglobin 11.6 g/dL (11.5-16.0); IMMATURE GRAN ABSOLUTE AUTO 0.18 K/mm3 (0.00-0.10); IMMATURE GRAN PERCENT AUTO 1 % (0-1); LYMPHOCYTES ABSOLUTE AUTO 3.42 K/mm3 (0.84-5.20); LYMPHOCYTES PERCENT AUTO 17 % (21-46); MONOCYTES ABSOLUTE AUTO 1.43 K/mm3 (0.16-1.47); MONOCYTES PERCENT AUTO 7 % (4-13); Mean Corpuscular HGB Conc 34.9 g/dL (31.5-36.5); Mean Corpuscular Volume 82 fL (80-100); NEUTROPHILS ABSOLUTE AUTO 13.92 K/mm3 (1.96-9.15); NEUTROPHILS PERCENT AUTO 71 % (41-73); NRBC ABSOLUTE 0.00 K/mm3 (0.00-0.02); NRBC Auto 0.0 /100 WBC (0.0-0.2); Platelet Count 181 K/mm3 (150-400); RDW Coefficient Variation 12.8 % (11.7-14.2); RDW Standard Deviation 38.3 fL (35.1-46.3)
[2025-05-09 04:43] LABS: Alanine Aminotransfer (ALT/SGP 288.0 U/L (12-78); Albumin, Blood 2.2 g/dL (3.4-5.0); Albumin/Globulin Ratio 0.8 (0.8-1.8); Anion Gap 11.0 mmol/L (3-11); Aspartate Aminotrans (AST/SGOT 237.0 U/L (12-37); Bilirubin, Total 0.4 mg/dL (0.1-1.0); Blood Urea Nitrogen 28.0 mg/dL (8-24); CO2, Blood 26.0 mmol/L (21-32); Calcium, Blood 7.5 mg/dL (8.5-10.1); Chloride, Blood 106.0 mmol/L (98-108); Creatinine, Blood 1.35 mg/dL (0.40-1.00); Globulin, Blood 2.8 g/dL (2.2-4.0); Glucose, Blood 147.0 mg/dL (70-99); Magnesium, Blood 1.9 mg/dL (1.6-2.4); Phosphorus, Blood 4.7 mg/dL (2.5-4.9); Potassium, Blood 3.5 mmol/L (3.5-5.5); Sodium, Blood 139.0 mmol/L (136-145); Total Protein, Blood 5.0 g/dL (6.4-8.2)
[2025-05-09 05:03] LABS: pH Blood Arterial 7.46 (7.35-7.45)
--- NOTE | 2025-05-09 06:38 | NUR ---
End of Shift Summary Uneventful shift, sedation maintained , levophed unable to wean at this time. Order to restart insulin drip reiceved and continous to infuse per EMR dosage. Pt recieved one dose of PRN pain medicaiton otherwise no compliants and VSS at this time.
[2025-05-09] MEDS ORDERED: Potassium Chl 20MEQ/Water100ML 100 ML IV STA (08:12)
[2025-05-09] MEDS ORDERED: D5W-1/2NS 1,000 ML IV SCH ×2 (08:25→10:50)
[2025-05-09] MEDS ORDERED: Colchicine 0.6 MG TAB PO SCH (09:00)
--- NOTE | 2025-05-09 11:09 | NUR ---
ASSUMPTION OF CARE ASSUEMD CARE OF PATIENT AT APPROXIMATELY 0700. PT RESTING IN BED, INTUBATED AND SEDATED, PROPOFOL INFUSING AT 35MCG/KG/MIN AT START OF SHIFT, TITRATED DOWN TO 25MCG/KG/MIN, PT RESTLESS IN BED, GAGGING ON TUBE, COUGHING, PULLING AGAINST RESTRAINTS. PT NOT FOLLOWING COMMANDS, MOVES EXTREMITIES EQUALLY BILATERALLY. PT MEDICATED PER EMAR WITH DILAUDID. HR 110-120'S SINUS, LEVOPHED INFUSING TO MAINTAIN MAP >65, SEE FLOWSHEET FOR TITRATIONS. ARTERIAL LINE IN PLACE TO LEFT FEMORAL. VENT SETTINGS AC/VC 16/400/8/45%, OXYGEN SATURATION >95%. ABDOMEN SOFT, BOWEL TONES ACTIVE THROGUHOUT. OG TUBE IN PLACE WITH GLUCERNA 1.2 INFUSING AT GOAL RATE OF 40MLS/HR WITH 30ML Q4H WATER FLUSH. TEMP ALVARADO IN PLACE PATENT DRAINING YELLOW URINE WITH SEDIMENT. CENTRAL LINE IN PLACE TO LEFT FEMORAL, POWERGLIDE IN PLACE TO DOMENICO SL. VENT SETTINGS PLACED ON SPONTANEOUS PER DR. DUMONT, PROPOFOL PLACED ON SB. BED IN LOWEST POSITION, CALL LIGHT WITHIN REACH, CARE CONTINUES.
[2025-05-09 11:14] LABS: BASOPHILS ABSOLUTE AUTO 0.07 K/mm3 (0.00-0.23); BASOPHILS PERCENT AUTO 0 % (0-2); EOSINOPHILS ABSOLUTE AUTO 1.18 K/mm3 (0.00-0.68); EOSINOPHILS PERCENT AUTO 6 % (0-6); Hematocrit 33.0 % (33.0-51.0); Hemoglobin 11.3 g/dL (11.5-16.0); IMMATURE GRAN ABSOLUTE AUTO 0.23 K/mm3 (0.00-0.10); IMMATURE GRAN PERCENT AUTO 1 % (0-1); LYMPHOCYTES ABSOLUTE AUTO 3.28 K/mm3 (0.84-5.20); LYMPHOCYTES PERCENT AUTO 16 % (21-46); MONOCYTES ABSOLUTE AUTO 1.42 K/mm3 (0.16-1.47); MONOCYTES PERCENT AUTO 7 % (4-13); Mean Corpuscular HGB Conc 34.2 g/dL (31.5-36.5); Mean Corpuscular Volume 84 fL (80-100); NEUTROPHILS ABSOLUTE AUTO 13.92 K/mm3 (1.96-9.15); NEUTROPHILS PERCENT AUTO 69 % (41-73); NRBC ABSOLUTE 0.00 K/mm3 (0.00-0.02); NRBC Auto 0.0 /100 WBC (0.0-0.2); Platelet Count 187 K/mm3 (150-400); RDW Coefficient Variation 12.9 % (11.7-14.2); RDW Standard Deviation 39.7 fL (35.1-46.3)
--- NOTE | 2025-05-09 11:36 | NUR ---
PT UPDATE PT EXTUBATED AT APPROXIMATELY 1130. PT PLACED ON 6LPM VIA NC, OXYGEN SATURATION >92%. CARE CONTINUES.
[2025-05-09 11:38] LABS: Alanine Aminotransfer (ALT/SGP 257.0 U/L (12-78); Albumin, Blood 2.1 g/dL (3.4-5.0); Albumin/Globulin Ratio 0.7 (0.8-1.8); Anion Gap 10.0 mmol/L (3-11); Aspartate Aminotrans (AST/SGOT 171.0 U/L (12-37); Bilirubin, Total 0.3 mg/dL (0.1-1.0); Blood Urea Nitrogen 28.0 mg/dL (8-24); CO2, Blood 26.0 mmol/L (21-32); Calcium, Blood 7.3 mg/dL (8.5-10.1); Chloride, Blood 107.0 mmol/L (98-108); Creatinine, Blood 1.41 mg/dL (0.40-1.00); Globulin, Blood 3.0 g/dL (2.2-4.0); Glucose, Blood 189.0 mg/dL (70-99); Magnesium, Blood 2.1 mg/dL (1.6-2.4); Phosphorus, Blood 3.7 mg/dL (2.5-4.9); Potassium, Blood 3.9 mmol/L (3.5-5.5); Sodium, Blood 139.0 mmol/L (136-145); Total Protein, Blood 5.1 g/dL (6.4-8.2)
[2025-05-09 14:25] LABS: PT, INHIBITOR SCREEN 18.9 sec (12.0-15.5); PT, INHIBITOR SCREEN, 1:1 MIX 14.8 sec (12.0-15.5)
--- NOTE | 2025-05-09 15:09 | NUR ---
Spiritual Care Visit. Pt. has been extubated and is currently somnolent using a BiPap. Friend/Roommate is present at bedside. Facilitated a family life review. Considered matters of health and Pt. self car. Friend displayed evidence of being supportive and also displayed evidence of agreement. Listened with interest and empathy. Friend verbalized gratitude for the spiritual care visit.
[2025-05-09 15:10] LABS: Vancomycin, Trough 27.4 ug/mL (5.0-10.0)
--- NOTE | 2025-05-09 17:36 | NUR ---
SHIFT SUMMARY PT CONTINUES TO REST IN BED, SLEEPING BUT AROUSABLE. PT VERY PAINFUL, CRYING/MOANING OUT. PT MEDICATED PER EMAR FOR CHEST PAIN. PT ANSWERS SOME QUESTIONS APPROPRIATELY, ORIENTED X3. PT FOLLOWS DIRECTION WHEN PROMPTED, MOVES EXTREMITIES EQUALLY BILATERALLY. HR 110-120'S SINUS, MAP >65. ARTERIAL LINE PULLED FROM LEFT FEMORAL, MANUAL PRESSURE HELD X15 MINUTES, CHG DRESSING APPLIED OVER SITE, NO SIGNS OF OOZING OR HEMATOMA FORMATION NOTED. PT ALTERNATING BETWEEN 4LPM VIA NC AND BIPAP 12/5 35%, OXYGEN SATURATION >90%. ABDOMEN SOFT, BOWEL TONES ACTIVE THROUGHOUT. TEMP ALVARADO IN PLACE, PATENT DRAINING YELLOW URINE WITH SEDIMENT TO GRAVITY. CENTRAL LINE IN PLACE TO LEFT FEMORAL, CHG DRESSING CHANGED. POWERGLIDE IN PLACE TO DOMENICO SL. D5 1/2 NS INFUSING AT 100MLS/HR, INSULIN DRIP INSFUSING, SEE FLOWSHEET FOR TITRATIONS. BED IN LOWEST POSITION, CALL LIGHT WITHIN REACH, CARE CONTINUES.
[2025-05-09 20:26] LABS: Anion Gap 3.0 mmol/L (3-11); Blood Urea Nitrogen 29.0 mg/dL (8-24); CO2, Blood 30.0 mmol/L (21-32); Calcium, Blood 7.8 mg/dL (8.5-10.1); Chloride, Blood 107.0 mmol/L (98-108); Creatinine, Blood 1.36 mg/dL (0.40-1.00); Glucose, Blood 178.0 mg/dL (70-99); Magnesium, Blood 2.1 mg/dL (1.6-2.4); Phosphorus, Blood 3.6 mg/dL (2.5-4.9); Potassium, Blood 3.5 mmol/L (3.5-5.5); Sodium, Blood 136.0 mmol/L (136-145)
[2025-05-09] MEDS ORDERED: Colchicine 0.6 MG TAB PT SCH (21:00)
[2025-05-10] VITALS (48 sets, daily range): BP systolic 110–143; BP diastolic 77–95
[2025-05-10 03:44] LABS: BASOPHILS ABSOLUTE AUTO 0.07 K/mm3 (0.00-0.23); BASOPHILS PERCENT AUTO 0 % (0-2); EOSINOPHILS ABSOLUTE AUTO 1.35 K/mm3 (0.00-0.68); EOSINOPHILS PERCENT AUTO 8 % (0-6); Hematocrit 31.5 % (33.0-51.0); Hemoglobin 10.4 g/dL (11.5-16.0); IMMATURE GRAN ABSOLUTE AUTO 0.10 K/mm3 (0.00-0.10); IMMATURE GRAN PERCENT AUTO 1 % (0-1); LYMPHOCYTES ABSOLUTE AUTO 3.14 K/mm3 (0.84-5.20); LYMPHOCYTES PERCENT AUTO 19 % (21-46); MONOCYTES ABSOLUTE AUTO 1.15 K/mm3 (0.16-1.47); MONOCYTES PERCENT AUTO 7 % (4-13); Mean Corpuscular HGB Conc 33.0 g/dL (31.5-36.5); Mean Corpuscular Volume 87 fL (80-100); NEUTROPHILS ABSOLUTE AUTO 10.79 K/mm3 (1.96-9.15); NEUTROPHILS PERCENT AUTO 65 % (41-73); NRBC ABSOLUTE 0.00 K/mm3 (0.00-0.02); NRBC Auto 0.0 /100 WBC (0.0-0.2); Platelet Count 165 K/mm3 (150-400); RDW Coefficient Variation 13.1 % (11.7-14.2); RDW Standard Deviation 41.4 fL (35.1-46.3)
[2025-05-10 04:03] LABS: Albumin, Blood 2.1 g/dL (3.4-5.0); Anion Gap 9 mmol/L (3-11); Blood Urea Nitrogen 27 mg/dL (8-24); CO2, Blood 28 mmol/L (21-32); Calcium, Blood 7.5 mg/dL (8.5-10.1); Chloride, Blood 106 mmol/L (98-108); Creatinine, Blood 1.40 mg/dL (0.40-1.00); Glucose, Blood 155 mg/dL (70-99); Phosphorus, Blood 2.9 mg/dL (2.5-4.9); Potassium, Blood 3.6 mmol/L (3.5-5.5); Sodium, Blood 139 mmol/L (136-145); Vancomycin, Random 21.3 ug/mL
--- NOTE | 2025-05-10 06:34 | NUR ---
End of Shift Summary No signficant events this shift. Insulin drip turned off after blood sugar less than 150. Pt AOX3 , compliants of general pain , medicated per EMR.
--- NOTE | 2025-05-10 09:36 | NUR ---
ASSUMPTION OF CARE ASSUMED CARE OF PATIENT AT APPROXIMATELY 0700. PT RESTING IN BED, ALERT, ORIENTED. PT ANSWERS QUESTIONS APPROPRIATELY AFTER BEING ASKED MULTIPLE TIMES. PT FOLLOWS DIRECTIONS WHEN PROMPTED AND MOVES EXTREMITIES EQUALLY BILATERALLY. PT VERY PAINFUL WITH STIMULATION/REPOSITIONING, MEDICATED PER EMAR. HR 90-120'S SINUS, MAP >65. PT ALTERNATING BETWEEN BIPAP 12/5 35% AND 6LPM VIA NC, OXYGEN SATURATION >90%. ABDOMEN SOFT, BOWEL TONES ACTIVE THROUGHOUT. TEMP ALVARADO IN PLACE PATENT DRAINING YELLOW URINE TO GRAVITY, SEDIMENT NOTED. CENTRAL LINE IN PLACE TO LEFT GROIN, POWERGLIDE IN PLACE TO DOMENICO SL. PT TRANSFERED TO RECLINER THIS AM WITH LIFT. PT RESTING AT THIS TIME, CARE CONTINUES.
[2025-05-10] MEDS ORDERED: Furosemide 10 MG / ML 2ML Vial IV SCH (10:00)
[2025-05-10] MEDS ORDERED: Insulin Regular 100 UNIT/ML 10ML Vial SC SCH ×2 (11:30)
--- NOTE | 2025-05-10 18:13 | NUR ---
SHIFT SUMMARY PT RESTING IN BED, PT SPENT ENTIRE SHIFT UP IN BEDSIDE RECLINER WITH WEIGHT DISTRIBUTION PAD UNDERNEATH HER. PT ALERT AND ORIENTED X4. PT ANSWERS QUESTIONS APPROPRIATLEY, FOLLOWS DIRECITON WHEN PROMPTED AND IS ABLE TO MAKE HER NEEDS KNOWN. PT MOVES EXTREMITIES EQUALLY BILATERALLY. PT PAINFUL WITH REPOSITIONING, MEDICATED PER EMAR. HR 90-120'S SINUS, MAP >65. PT ALTERNATING BETWEEN 4LPM VIA NC AND BIPAP 12/5 30%, OXYGEN SATURATION >90%. ABDOMEN SOFT, BOWEL TONES ACTIVE THROUGHOUT. TEMP ALVARADO IN PLACE PATENT DRAINING YELLOW URINE WITH SEDIMENT TO GRAIVTY. CENTRAL LINE IN PLACE TO LEFT FEMORAL SL, POWERGLIDE IN PLACE TO DOMENICO SL. BED IN LOWEST POSITION, CALL LIGHT WITHIN REACH, CARE CONTINUES.
[2025-05-10] MEDS ORDERED: Enoxaparin 40 MG/0.4 ML SYR SC ONE (20:45)
--- NOTE | 2025-05-10 20:58 | NUR ---
ASSUME CARE: BEDSIDE REPORT RECIEVED FROM MONANEJAYDA RN. PT A/Ox4 AND PLEASANT W/CARE, INITIALLY SLEEPING W/BIPAP ON, ABLE TO COME OFF BIPAP AND TAKE PM MEDS, ANSWER QUESTIONS APPROPRIATLEY AND FOLLOW COMMANDS. PT COMPLAINS OF PAIN IN THE RIGHT ARM, UNABLE TO MOVE IT IS EXTREMELELY PAINFUL, RIGHT ARM IS SWOLLEN, RED, AND HOT TO THE TOUCH, DR. DUMONT NOTIFIED, NEW ORDERS GIVEN. TEMP ALVARADO IN PLACE DRAINING TO GRAVITY. WILL UPDATE NEEDED.
[2025-05-10] MEDS ORDERED: Lactobacil 2-S.Thermo-Bifido 1 1 Cap PO SCH (21:00)
[2025-05-10] MEDS ORDERED: Insulin NPH 100 Unit / ML 10ML Vial SC SCH (21:00)
[2025-05-10] MEDS ORDERED: Colchicine 0.6 MG TAB PO SCH (21:00)
[2025-05-11] VITALS (38 sets, daily range): BP systolic 106–145; BP diastolic 70–90
[2025-05-11 04:34] LABS: BASOPHILS ABSOLUTE AUTO 0.05 K/mm3 (0.00-0.23); BASOPHILS PERCENT AUTO 0 % (0-2); EOSINOPHILS ABSOLUTE AUTO 1.15 K/mm3 (0.00-0.68); EOSINOPHILS PERCENT AUTO 9 % (0-6); Hematocrit 30.1 % (33.0-51.0); Hemoglobin 10.0 g/dL (11.5-16.0); IMMATURE GRAN ABSOLUTE AUTO 0.08 K/mm3 (0.00-0.10); IMMATURE GRAN PERCENT AUTO 1 % (0-1); LYMPHOCYTES ABSOLUTE AUTO 2.43 K/mm3 (0.84-5.20); LYMPHOCYTES PERCENT AUTO 18 % (21-46); MONOCYTES ABSOLUTE AUTO 1.12 K/mm3 (0.16-1.47); MONOCYTES PERCENT AUTO 9 % (4-13); Mean Corpuscular HGB Conc 33.2 g/dL (31.5-36.5); Mean Corpuscular Volume 87 fL (80-100); NEUTROPHILS ABSOLUTE AUTO 8.42 K/mm3 (1.96-9.15); NEUTROPHILS PERCENT AUTO 64 % (41-73); NRBC ABSOLUTE 0.00 K/mm3 (0.00-0.02); NRBC Auto 0.0 /100 WBC (0.0-0.2); Platelet Count 174 K/mm3 (150-400); RDW Coefficient Variation 12.8 % (11.7-14.2); RDW Standard Deviation 40.7 fL (35.1-46.3)
[2025-05-11 04:57] LABS: Anion Gap 8.0 mmol/L (3-11); Blood Urea Nitrogen 27.0 mg/dL (8-24); CO2, Blood 29.0 mmol/L (21-32); Calcium, Blood 7.6 mg/dL (8.5-10.1); Chloride, Blood 104.0 mmol/L (98-108); Creatinine, Blood 1.34 mg/dL (0.40-1.00); Glucose, Blood 221.0 mg/dL (70-99); Magnesium, Blood 2.0 mg/dL (1.6-2.4); Phosphorus, Blood 2.8 mg/dL (2.5-4.9); Potassium, Blood 3.5 mmol/L (3.5-5.5); Sodium, Blood 137.0 mmol/L (136-145)
--- NOTE | 2025-05-11 05:24 | NUR ---
SHIFT SUMMARY: PT A/Ox4 AND ABLE TO MAKE NEEDS KNOWN. PT ABLE TO TOLERATE BIPAP FOR MOST OF THE NIGHT W/INTERMITTENT BREAKS FOR ORAL CARE. SP02>90% ON 6L NC. SBP 130s, MAP>65, MONITOR SHOWS SR, RATE 90s. TEMP ALVARADO IN PLACE, DRAINING TO GRAVITY. PT HAS WEAK PRODUCTIVE COUGH, COMPLAINS OF SHARP PAIN W/COUGH. WILL REPORT TO ONCOMING RN.
--- NOTE | 2025-05-11 11:21 | NUR ---
ASSUMPTION OF CARE ASSUMED [facility] AT [facility]. PT RESTING IN BED, SLEEPING BUT AROUSABLE. PT ANSWERS QUESTIONS APPROPRIATELY, FOLLOWS DIRECTION WHEN PROMTPED AND IS ABLE TO MAKE HER NEEDS KNOWN. PT MOVES EXTREMITIES, RIGHT ARM PAINFUL AND MORE SWOLLEN THAN LEFT. PT UP IN RECLINER VIA LIFT. HR 90-110'S SINUS, MAP >65. PT ON 3LPM VIA NC AT START OF SHIFT, TITRATED PER OXYGEN NEEDS TO MAINTAIN OXYGEN SATURATION >90%. ABDOMEN SOFT, BOWEL TONES ACTIVE THROGUGHOUT, PT PLACED ON BED [place] FOR BM, SMALL BROWN SMEAR. ALVARADO IN PLACE PATENT DRAINING YELLOW URINE TO GRAVITY. CENTRAL LINE IN PLACE TO LEFT FEMORAL, POWERGLIDE IN PLACE TO DOMENICO SL. CALL LIGHT WITHIN REACH, CARE CONTINUES.
--- NOTE | 2025-05-11 18:58 | NUR ---
SHIFT SUMMARY/TRANSFER TO PCU NO ACUTE CHANGES THIS SHIFT. PT TRASNFERED TO PCU VIA ICU BED, TRANSFERED TO PCU BED VIA LIFT. PT REMAINED ALERT AND ORIENTED, VSS. ALL BELONGINGS TRANSFERED WITH PT.
[2025-05-12 03:57] VITALS: BP 136/80
[2025-05-12 05:15] LABS: BASOPHILS ABSOLUTE AUTO 0.04 K/mm3 (0.00-0.23); BASOPHILS PERCENT AUTO 0 % (0-2); EOSINOPHILS ABSOLUTE AUTO 1.39 K/mm3 (0.00-0.68); EOSINOPHILS PERCENT AUTO 14 % (0-6); Hematocrit 33.5 % (33.0-51.0); Hemoglobin 11.0 g/dL (11.5-16.0); IMMATURE GRAN ABSOLUTE AUTO 0.13 K/mm3 (0.00-0.10); IMMATURE GRAN PERCENT AUTO 1 % (0-1); LYMPHOCYTES ABSOLUTE AUTO 2.11 K/mm3 (0.84-5.20); LYMPHOCYTES PERCENT AUTO 21 % (21-46); MONOCYTES ABSOLUTE AUTO 1.36 K/mm3 (0.16-1.47); MONOCYTES PERCENT AUTO 13 % (4-13); Mean Corpuscular HGB Conc 32.8 g/dL (31.5-36.5); Mean Corpuscular Volume 86 fL (80-100); NEUTROPHILS ABSOLUTE AUTO 5.22 K/mm3 (1.96-9.15); NEUTROPHILS PERCENT AUTO 51 % (41-73); NRBC ABSOLUTE 0.00 K/mm3 (0.00-0.02); NRBC Auto 0.0 /100 WBC (0.0-0.2); Platelet Count 193 K/mm3 (150-400); RDW Coefficient Variation 12.1 % (11.7-14.2); RDW Standard Deviation 38.3 fL (35.1-46.3)
--- NOTE | 2025-05-12 05:34 | NUR ---
SHIFT SUMMARY PT IS A&O X 4, SLOW TO RESPOND, ABLE TO MAKE NEEDS KNOWN, MOVING ALL EXTREMITIES WITH PURPOSE, OBEYS COMMANDS, Q2 REPOSITIONING. CONTINUOUS SPO2, SPO2 GREATER THAN 92% ON 2L 02 VIA NC/ TIRATED FROM 4L O2 VIA NC AT THE START OF THIS SHIFT, LUNGS SOUND CLEAR WITH DIMMINISHED BASES, PT DENIES SOB WHILE AT REST. CONTINUOUS TELE MONITORING, SINUS HR 80-90 S, BP STABLE WITH MAP GREATER THAN 65, CAP REFILL WNL, PULSES PRESENT T/O, PT REPORTING CHEST PAIN THAT IS WORSE WITH DEEP BREATHS/ PT S/P CARDIAC ARREST 05/07 X2,BLE EDEMA. BOWEL TONES PRESENT IN ALL 4Q, PT DENIES FEELINGS OF NAUSEA, OR CONSTIPATION. ALVARADO CATH IS PATENT/DRAINING TO GRAVITY/SECURE , URINE YELLOW IN COLOR. PT REPORTS CHEST PAIN WITH DEEP BREATHING/ PT RECEIVING SCHEDULED PAIN MEDICATIONS BED LOWEST POSITION, CALL LIGHT IN REACH, AWAITING TO GIVE REPORT TO ONCOMING RN.
[2025-05-12 05:41] LABS: Alanine Aminotransfer (ALT/SGP 136.0 U/L (12-78); Albumin, Blood 2.1 g/dL (3.4-5.0); Albumin/Globulin Ratio 0.5 (0.8-1.8); Anion Gap 8.0 mmol/L (3-11); Aspartate Aminotrans (AST/SGOT 87.0 U/L (12-37); Bilirubin, Total 0.3 mg/dL (0.1-1.0); Blood Urea Nitrogen 23.0 mg/dL (8-24); CO2, Blood 31.0 mmol/L (21-32); Calcium, Blood 7.8 mg/dL (8.5-10.1); Chloride, Blood 103.0 mmol/L (98-108); Creatinine, Blood 1.22 mg/dL (0.40-1.00); Globulin, Blood 3.9 g/dL (2.2-4.0); Glucose, Blood 220.0 mg/dL (70-99); Potassium, Blood 3.1 mmol/L (3.5-5.5); Sodium, Blood 139.0 mmol/L (136-145); Total Protein, Blood 6.0 g/dL (6.4-8.2)
[2025-05-12 11:12] VITALS: BP 146/87
[2025-05-12] MEDS ORDERED: Insulin Glargine-Yfgn 100 Unit/mL 3 ML SYR SC SCH (12:00)
[2025-05-12 12:51] LABS: Anion Gap 7.0 mmol/L (3-11); Blood Urea Nitrogen 22.0 mg/dL (8-24); CO2, Blood 31.0 mmol/L (21-32); Calcium, Blood 8.2 mg/dL (8.5-10.1); Chloride, Blood 102.0 mmol/L (98-108); Creatinine, Blood 1.15 mg/dL (0.40-1.00); Glucose, Blood 199.0 mg/dL (70-99); Potassium, Blood 3.5 mmol/L (3.5-5.5); Sodium, Blood 136.0 mmol/L (136-145)
[2025-05-12 15:11] VITALS: BP 147/98
[2025-05-12] MEDS ORDERED: Insulin Human Lispro 100 Units/ML 3ML Syringe SC SCH ×2 (16:30)
--- NOTE | 2025-05-12 17:58 | NUR ---
SHIFT SUMMARY; ASSUMED CARE AT 0700. A/A/OX4, SLOW TO ANSWER QUESTIONS AT TIMES BUT ANSWERS APPROPRIATLY. 1.5L 02 VIA NC, ATTEMPTED TO TITRATE DOWN, WHILE SLEEPING DSATS TO 85%. SATS IMPROVED TO 95% WHEN PLACED BACK ON 1.5L NC. ALVARADO IN PLACE DRAINING TO GRAVITY. UP TO RECLINER CHAIR WITH OT, SITS IN RECLINER ALL OF SHIFT. ELBOWS FLOATED, REPOSITIONED Q2. FAMILY AT BEDSIDE VISITING. PLEASANT AND COOPERATIVE WITH CARE. VSS, WILL CONTINUE TO MONITOR AND TREAT UNTIL REPORT GIVEN TO NOC SHIFT RN.
[2025-05-12 20:36] VITALS: BP 131/79
[2025-05-13 02:04] VITALS: BP 160/91
[2025-05-13 03:27] VITALS: BP 163/91
[2025-05-13 07:35] VITALS: BP 150/92
[2025-05-13 10:56] LABS: BASOPHILS ABSOLUTE AUTO 0.06 K/mm3 (0.00-0.23); BASOPHILS PERCENT AUTO 1 % (0-2); EOSINOPHILS ABSOLUTE AUTO 1.73 K/mm3 (0.00-0.68); EOSINOPHILS PERCENT AUTO 19 % (0-6); Hematocrit 36.1 % (33.0-51.0); Hemoglobin 11.7 g/dL (11.5-16.0); IMMATURE GRAN ABSOLUTE AUTO 0.14 K/mm3 (0.00-0.10); IMMATURE GRAN PERCENT AUTO 2 % (0-1); LYMPHOCYTES ABSOLUTE AUTO 2.47 K/mm3 (0.84-5.20); LYMPHOCYTES PERCENT AUTO 27 % (21-46); MONOCYTES ABSOLUTE AUTO 1.36 K/mm3 (0.16-1.47); MONOCYTES PERCENT AUTO 15 % (4-13); Mean Corpuscular HGB Conc 32.4 g/dL (31.5-36.5); Mean Corpuscular Volume 90 fL (80-100); NEUTROPHILS ABSOLUTE AUTO 3.34 K/mm3 (1.96-9.15); NEUTROPHILS PERCENT AUTO 37 % (41-73); NRBC ABSOLUTE 0.00 K/mm3 (0.00-0.02); NRBC Auto 0.0 /100 WBC (0.0-0.2); Platelet Count 193 K/mm3 (150-400); RDW Coefficient Variation 12.2 % (11.7-14.2); RDW Standard Deviation 39.6 fL (35.1-46.3)
[2025-05-13 11:14] LABS: Anion Gap 7.0 mmol/L (3-11); Blood Urea Nitrogen 17.0 mg/dL (8-24); CO2, Blood 28.0 mmol/L (21-32); Calcium, Blood 7.7 mg/dL (8.5-10.1); Chloride, Blood 107.0 mmol/L (98-108); Creatinine, Blood 1.12 mg/dL (0.40-1.00); Glucose, Blood 147.0 mg/dL (70-99); Potassium, Blood 3.1 mmol/L (3.5-5.5); Sodium, Blood 139.0 mmol/L (136-145)
--- NOTE | 2025-05-13 16:01 | NUR ---
PATIENT TRANSFERRED FROM PCU TO MEDICAL VIA WHEELCHAIR AND STAFF ASSIST. PT ALERT AND ORIENTED WITH FAMILY AT BEDSIDE. PATIENT ORIENTED TO ROOM, CALL LIGHT AND WHEN TO CALL. PATIENT VERBALLY AGREED AND UNDERSTOOD. RESTING IN BED, PT EVALUATED PATIENT AND ENCOURAGES PATIENT TO GET TO RECLINER AND BEDSIDE COMMODE.
[2025-05-13 16:07] VITALS: BP 154/95
[2025-05-13 21:16] VITALS: BP 165/94
[2025-05-14 04:45] VITALS: BP 157/93
--- NOTE | 2025-05-14 06:20 | NUR ---
Shift Summary No acute changes. Pt placed on cont. O2 monitor as ordered. Weaned down to 2L O2 via NC, no desaturation events while it was on. While asleep her NC slipped off and she did desat down to 86%. She is AOx4, 1 assist to the BR with a FWW.
[2025-05-14 07:42] VITALS: BP 159/90
[2025-05-14 07:48] LABS: Anion Gap 10.0 mmol/L (3-11); Blood Urea Nitrogen 16.0 mg/dL (8-24); CO2, Blood 27.0 mmol/L (21-32); Calcium, Blood 8.1 mg/dL (8.5-10.1); Chloride, Blood 106.0 mmol/L (98-108); Creatinine, Blood 1.09 mg/dL (0.40-1.00); Glucose, Blood 134.0 mg/dL (70-99); Magnesium, Blood 2.0 mg/dL (1.6-2.4); Potassium, Blood 3.2 mmol/L (3.5-5.5); Sodium, Blood 140.0 mmol/L (136-145)
[2025-05-14 15:42] VITALS: BP 172/102
[2025-05-14 17:52] VITALS: BP 174/100
--- NOTE | 2025-05-14 18:20 | NUR ---
Spiritual Care Visit. Pt. is awake in bed and welcomes my visit. Pt. is pleasant. Facilitate an update and inquire in a more focused manner reagarding matters of ke and belief. Pt. verbalizes that her ke is not defined by the muslim structures of our world. Listen with interest and empathy. The Pt. welcomes prayer. Prayed with Pt. Pt. displays evidence of awareness and engagement. Pt. verbalizes an expectation to be transferred to a rehab facility before going home. Pt. verbalized gratitude for the spiritual care visit.
--- NOTE | 2025-05-14 19:30 | NUR ---
ASSUMED PT CARE 1545, PT PLEASANT COOP A/O, LYING IN BED NO DISTRESS NOTED. BP ELEVATED, REQUEST JOE RN TO RECHECK, PT SOME ANX. NO OTHER CONCERNS NOTED, BED IN LOW POSITION, CALL LITE IN REACH, CALLS APPROP
[2025-05-14 20:27] VITALS: BP 156/86
[2025-05-15 04:48] VITALS: BP 160/91
[2025-05-15 05:52] LABS: Hematocrit 33.3 % (33.0-51.0); Hemoglobin 10.9 g/dL (11.5-16.0); Mean Corpuscular HGB Conc 32.7 g/dL (31.5-36.5); Mean Corpuscular Volume 87 fL (80-100); NRBC ABSOLUTE 0.00 K/mm3 (0.00-0.02); NRBC Auto 0.0 /100 WBC (0.0-0.2); Platelet Count 244 K/mm3 (150-400); RDW Coefficient Variation 12.4 % (11.7-14.2); RDW Standard Deviation 38.6 fL (35.1-46.3)
[2025-05-15 06:17] LABS: Anion Gap 9.0 mmol/L (3-11); Blood Urea Nitrogen 17.0 mg/dL (8-24); CO2, Blood 26.0 mmol/L (21-32); Calcium, Blood 7.8 mg/dL (8.5-10.1); Chloride, Blood 105.0 mmol/L (98-108); Creatinine, Blood 1.24 mg/dL (0.40-1.00); Glucose, Blood 228.0 mg/dL (70-99); Potassium, Blood 3.4 mmol/L (3.5-5.5); Sodium, Blood 137.0 mmol/L (136-145)
[2025-05-15 06:23] LABS: BASOPHILS ABSOLUTE MAN 0.07 K/mm3 (0.00-0.23); BASOPHILS PERCENT MAN 1 % (0-2); EOSINOPHILS ABSOLUTE MAN 1.32 K/mm3 (0.00-0.68); EOSINOPHILS PERCENT MAN 17 % (0-6); LYMPHOCYTES ABSOLUTE MAN 2.18 K/mm3 (0.84-5.20); LYMPHOCYTES PERCENT MAN 28 % (21-46); MONOCYTES ABSOLUTE MAN 1.40 K/mm3 (0.16-1.47); MONOCYTES PERCENT MAN 18 % (4-13); NEUTROPHILS ABSOLUTE MAN 2.72 K/mm3 (1.96-9.15); PLASMA CELL ABSOLUTE MAN 0.07 K/mm3 (0.00-0.00); PLASMA CELLS PERCENT MAN 1 % (0-0); SEG NEUTROPHILS PERCENT MAN 35 % (41-73)
--- NOTE | 2025-05-15 06:47 | NUR ---
SHIFT SUMMARY: Pt is admitted for DKA and is a full code. Is alert and able to make needs known. ADLs have been SBA. she has stated that pain has been between 3-4 in the sternum. When offered PRN pain management she stated that she would let this LN know when it was time. Power glide to left upper arm is patent with dressing that is CDI.
[2025-05-15 07:22] VITALS: BP 163/94
[2025-05-15] MEDS ORDERED: Insulin Glargine-Yfgn 100 Unit/mL 3 ML SYR SC SCH (09:00)
[2025-05-15 14:32] VITALS: BP 151/93
--- NOTE | 2025-05-15 17:58 | NUR ---
Spiritual Care Attempted. Pt. is Somnolent and does not respond to her name when I call to her. Will remain available to Pt.
--- NOTE | 2025-05-15 18:35 | NUR ---
NO CHANGES, ALERT AND ORIENTED, X3, WORKED WITH PT/OT, MEDICATED FOR PAIN WITH TYLENOL, CALL LIGHT WITH IN REACH, COVERED BS, WILL RELAY TO PM RN
[2025-05-15 20:18] VITALS: BP 151/88
[2025-05-15] MEDS ORDERED: Enoxaparin 40 MG/0.4 ML SYR SC SCH (21:00)
[2025-05-16 04:44] VITALS: BP 155/80
[2025-05-16 05:59] LABS: Hematocrit 34.7 % (33.0-51.0); Hemoglobin 11.1 g/dL (11.5-16.0); Mean Corpuscular HGB Conc 32.0 g/dL (31.5-36.5); Mean Corpuscular Volume 88 fL (80-100); NRBC ABSOLUTE 0.00 K/mm3 (0.00-0.02); NRBC Auto 0.0 /100 WBC (0.0-0.2); Platelet Count 240 K/mm3 (150-400); RDW Coefficient Variation 12.4 % (11.7-14.2); RDW Standard Deviation 39.4 fL (35.1-46.3)
--- NOTE | 2025-05-16 06:19 | NUR ---
SHIFT SUMMARY: Pt is admitted for DKA and is a full code. Is alert and able to make needs known. ADLs have been SBA. she has stated that pain has been between 3-4 in the sternum. pain was managed with PRN medication. power glide to left upper arm is patent with dressing that is CDI.
[2025-05-16 06:27] LABS: Alanine Aminotransfer (ALT/SGP 112.0 U/L (12-78); Albumin, Blood 2.4 g/dL (3.4-5.0); Albumin/Globulin Ratio 0.6 (0.8-1.8); Anion Gap 8.0 mmol/L (3-11); Aspartate Aminotrans (AST/SGOT 73.0 U/L (12-37); Bilirubin, Total 0.3 mg/dL (0.1-1.0); Blood Urea Nitrogen 13.0 mg/dL (8-24); CO2, Blood 27.0 mmol/L (21-32); Calcium, Blood 8.2 mg/dL (8.5-10.1); Chloride, Blood 107.0 mmol/L (98-108); Creatinine, Blood 1.11 mg/dL (0.40-1.00); Globulin, Blood 3.8 g/dL (2.2-4.0); Glucose, Blood 185.0 mg/dL (70-99); Phosphorus, Blood 3.6 mg/dL (2.5-4.9); Potassium, Blood 3.5 mmol/L (3.5-5.5); Sodium, Blood 138.0 mmol/L (136-145); Total Protein, Blood 6.2 g/dL (6.4-8.2)
[2025-05-16 06:34] LABS: BAND PERCENT MAN 1 % (0-8); BASOPHILS ABSOLUTE MAN 0.00 K/mm3 (0.00-0.23); BASOPHILS PERCENT MAN 0 % (0-2); EOSINOPHILS ABSOLUTE MAN 1.64 K/mm3 (0.00-0.68); EOSINOPHILS PERCENT MAN 20 % (0-6); LYMPHOCYTES ABSOLUTE MAN 1.89 K/mm3 (0.84-5.20); LYMPHOCYTES PERCENT MAN 23 % (21-46); MONOCYTES ABSOLUTE MAN 1.23 K/mm3 (0.16-1.47); MONOCYTES PERCENT MAN 15 % (4-13); NEUTROPHILS ABSOLUTE MAN 3.45 K/mm3 (1.96-9.15); SEG NEUTROPHILS PERCENT MAN 41 % (41-73)
[2025-05-16 07:16] VITALS: BP 149/95
[2025-05-16] MEDS ORDERED: Insulin Glargine-Yfgn 100 Unit/mL 3 ML SYR SC SCH (09:00)
--- NOTE | 2025-05-16 13:28 | NUR ---
PATIENT OXYGEN REMAINS IN THE JACKIE TO HIGH 90'S. AMBULATED TO BATHROOM AND BACK TO BED WITH LEVELS AT 96% . METER TURNED DOWN TO 1 LPM VIA NASAL CANNULA. WILL CONTINUE TO MONITOR
--- NOTE | 2025-05-16 14:30 | NUR ---
PATIENT SITING IN BED WITH OXYGEN AT 98%. TURNED OXYGEN OFF. WILL EVALUATE.
--- NOTE | 2025-05-16 17:55 | NUR ---
Spiritual Care Attempted Pt. is somnolent. Will remain available to the Pt.
--- NOTE | 2025-05-16 18:10 | NUR ---
PATIENT ALERT AND HAD NO CONCERNS TODAY ASIDE FROM UNKNOWING IF SHE WILL BE GOING TO REHAB OR HOME WITH HOME HEALTH. PATIENT WEANED FROM O2. SLEEPING BEFORE DINNER AND MAINTAINING LEVELS IN THE LOW 90'S. PATIENT AROUSES EASILY. CALL LIGHT WITHIN REACH AND BED IN LOW POSITION.
[2025-05-16 20:08] VITALS: BP 156/89
--- NOTE | 2025-05-17 04:51 | NUR ---
PT STS HER UPPER BACK IS HURTING 8/10 PAIN. PT GIVEN TYLENOL PER EMAR AND A HEATING PAD. WILL UPDATE PT RN UPON HIS RETURN.
[2025-05-17 05:17] VITALS: BP 165/91
[2025-05-17 06:15] LABS: Anion Gap 10.0 mmol/L (3-11); Blood Urea Nitrogen 12.0 mg/dL (8-24); CO2, Blood 25.0 mmol/L (21-32); Calcium, Blood 7.8 mg/dL (8.5-10.1); Chloride, Blood 109.0 mmol/L (98-108); Creatinine, Blood 1.15 mg/dL (0.40-1.00); Glucose, Blood 128.0 mg/dL (70-99); Potassium, Blood 3.7 mmol/L (3.5-5.5); Sodium, Blood 140.0 mmol/L (136-145)
[2025-05-17 06:25] LABS: BASOPHILS ABSOLUTE AUTO 0.05 K/mm3 (0.00-0.23); BASOPHILS PERCENT AUTO 1 % (0-2); EOSINOPHILS ABSOLUTE AUTO 0.86 K/mm3 (0.00-0.68); EOSINOPHILS PERCENT AUTO 11 % (0-6); Hematocrit 38.4 % (33.0-51.0); Hemoglobin 12.2 g/dL (11.5-16.0); IMMATURE GRAN ABSOLUTE AUTO 0.08 K/mm3 (0.00-0.10); IMMATURE GRAN PERCENT AUTO 1 % (0-1); LYMPHOCYTES ABSOLUTE AUTO 1.75 K/mm3 (0.84-5.20); LYMPHOCYTES PERCENT AUTO 22 % (21-46); MONOCYTES ABSOLUTE AUTO 0.80 K/mm3 (0.16-1.47); MONOCYTES PERCENT AUTO 10 % (4-13); Mean Corpuscular HGB Conc 31.8 g/dL (31.5-36.5); Mean Corpuscular Volume 89 fL (80-100); NEUTROPHILS ABSOLUTE AUTO 4.44 K/mm3 (1.96-9.15); NEUTROPHILS PERCENT AUTO 56 % (41-73); NRBC ABSOLUTE 0.00 K/mm3 (0.00-0.02); NRBC Auto 0.0 /100 WBC (0.0-0.2); Platelet Count 251 K/mm3 (150-400); RDW Coefficient Variation 12.3 % (11.7-14.2); RDW Standard Deviation 39.7 fL (35.1-46.3)
--- NOTE | 2025-05-17 06:34 | NUR ---
FLOOR TILING PROFESSIONAL SUMMARY VSS. UP WITH ASSIST AND WALKER TO BATHROOM. ALERT AND ORIENTED X 4. HAS CONTINUOUS PULSE OX O2 AT 1L/MIN AT NOCT WHEN DESATING. ABLE TO REPOSITOIN SELF IN BED WITHOUT ASSIST. DENIED CHEST PAIN WHEN ASKED. RESPS EVEN. HAS BEEN RESTING QUIETLY WITH FEW INTERRUPTIONS. CALL LIGHT IN REACH, RAILS UP X 2 AND BED IN LOW POSITION FOR SAFETY. WILL CONTINUE TO MONITOR
[2025-05-17 08:05] VITALS: BP 156/80
[2025-05-17] MEDS ORDERED: Insulin Human Lispro 100 Units/ML 3ML Syringe SC SCH (08:30)
[2025-05-17 16:07] VITALS: BP 146/79
--- NOTE | 2025-05-17 17:54 | NUR ---
SHIFT SUMMARY: A&OX4 THROUGHOUT SHIFT, BUT PT APPEARS TO BE WITHDRAWN. PLEASANT AND COOPERATIVE. AMBULATES IN ROOM WITH STAFF. MEDICATED PER EMAR. NO ACUTE EVENTS THIS SHIFT. HOB ELEVATED FOR DINNER. BED LOCKED AND IN THE LOWEST POSITION. CALL LT WITHIN REACH.
[2025-05-17 19:35] VITALS: BP 161/91
[2025-05-17] MEDS ORDERED: Polyethylene Glycol 3350 17 gm PO PRN (20:00)
[2025-05-17] MEDS ORDERED: Polyethylene Glycol 3350 17 gm PO ONE (20:00)
--- NOTE | 2025-05-17 20:32 | NUR ---
IV PROTONIX AND BOWEL REGIMEN PATIENT EATING/SWALLOWING GOOD, HOWEVER, LAST GOOD BM WAS 05/[address] JAYESH GOMEZ TO START PATIENT ON A BOWEL REGIMEN. ALSO INQUIRED ABOUT CHANGING PROTONIX TO PO INSTEAD OF IV. DR. GOMZE WILL PUT IN ORDERS.
[2025-05-18 04:54] VITALS: BP 159/92
[2025-05-18 07:06] VITALS: BP 153/83
[2025-05-18 07:11] LABS: BASOPHILS ABSOLUTE AUTO 0.04 K/mm3 (0.00-0.23); BASOPHILS PERCENT AUTO 1 % (0-2); EOSINOPHILS ABSOLUTE AUTO 0.43 K/mm3 (0.00-0.68); EOSINOPHILS PERCENT AUTO 5 % (0-6); Hematocrit 33.5 % (33.0-51.0); Hemoglobin 10.8 g/dL (11.5-16.0); IMMATURE GRAN ABSOLUTE AUTO 0.06 K/mm3 (0.00-0.10); IMMATURE GRAN PERCENT AUTO 1 % (0-1); LYMPHOCYTES ABSOLUTE AUTO 2.10 K/mm3 (0.84-5.20); LYMPHOCYTES PERCENT AUTO 25 % (21-46); MONOCYTES ABSOLUTE AUTO 1.23 K/mm3 (0.16-1.47); MONOCYTES PERCENT AUTO 15 % (4-13); Mean Corpuscular HGB Conc 32.2 g/dL (31.5-36.5); Mean Corpuscular Volume 88 fL (80-100); NEUTROPHILS ABSOLUTE AUTO 4.41 K/mm3 (1.96-9.15); NEUTROPHILS PERCENT AUTO 53 % (41-73); NRBC ABSOLUTE 0.00 K/mm3 (0.00-0.02); NRBC Auto 0.0 /100 WBC (0.0-0.2); Platelet Count 241 K/mm3 (150-400); RDW Coefficient Variation 12.8 % (11.7-14.2); RDW Standard Deviation 40.9 fL (35.1-46.3)
[2025-05-18 07:24] LABS: Anion Gap 9.0 mmol/L (3-11); Blood Urea Nitrogen 13.0 mg/dL (8-24); CO2, Blood 25.0 mmol/L (21-32); Calcium, Blood 7.8 mg/dL (8.5-10.1); Chloride, Blood 108.0 mmol/L (98-108); Creatinine, Blood 1.15 mg/dL (0.40-1.00); Glucose, Blood 117.0 mg/dL (70-99); Potassium, Blood 3.2 mmol/L (3.5-5.5); Sodium, Blood 139.0 mmol/L (136-145)
--- NOTE | 2025-05-18 07:31 | NUR ---
Shift Summary AOx4. Pleasant. Cooperative. Up w/ 1PA FWW to bathroom. C/O sternum pain from providing resuscitation, medicated with tylenol and scheduled med with some relief. Patient is having nonproductive dry cough. Using incentive spirometer with reminders. Breathing is shallow as it hurts to take deep breaths. No bm yet this shift. Consider adding additional bowel meds to her current regimen. Ambulation has been encouraged to assist with gi motility.
[2025-05-18] MEDS ORDERED: Lidocaine 4% 1 Patch TOP SCH (11:10)
[2025-05-18] MEDS ORDERED: DEXTROMETHORPHAN/BENZOCAINE 1 EACH LOZENGE MT PRN (12:15)
[2025-05-18 15:47] VITALS: BP 153/86
--- NOTE | 2025-05-18 17:40 | NUR ---
SHIFT SUMMARY PT A&OX4, VSS, RA, SBA WITH FWW TO BATHROOM. 1 LG BM THIS SHIFT. PT C/O STERNAL PAIN R/T PREVIOUS CHEST COMPRESSIONS, SOME RELIEF WITH TYLENOL, LIDOCAIN PATCH, AND SCEDULED PAIN MED. PT HAS WEAK COUGH, ENCOURAGED TO DEEP BREATH AND US IS, COUGH DROPS PROVIDED. AWAITING PT TO BE ABLE TO ACCESS OUT PATIENT MEDICATIONS AND POSSIBLE SNF OR HOME HEALTH TO [place].
[2025-05-18 19:43] VITALS: BP 148/90
[2025-05-19 02:34] VITALS: BP 179/107
[2025-05-19 02:36] VITALS: BP 176/93
--- NOTE | 2025-05-19 02:58 | NUR ---
SEVERE STERNUM PAIN Patient went to the bathroom, returned to bed, and laid herself back down a little too rough as she had anticipated the HOB being higher than it actually was. Because of this, she is in tears. Provided ice pack and gave scheduled and PRN meds with only slight improvement. Called Dr. Cr Black and obtained an order to give 1 TABLET 5/325 [place] PO ONCE for severe pain.
[2025-05-19] MEDS ORDERED: HYDROcodone 5-APAP 325 TAB PO ONE (03:00)
[2025-05-19 05:18] LABS: BASOPHILS ABSOLUTE AUTO 0.05 K/mm3 (0.00-0.23); BASOPHILS PERCENT AUTO 1 % (0-2); EOSINOPHILS ABSOLUTE AUTO 0.46 K/mm3 (0.00-0.68); EOSINOPHILS PERCENT AUTO 6 % (0-6); Hematocrit 33.2 % (33.0-51.0); Hemoglobin 10.9 g/dL (11.5-16.0); IMMATURE GRAN ABSOLUTE AUTO 0.03 K/mm3 (0.00-0.10); IMMATURE GRAN PERCENT AUTO 0 % (0-1); LYMPHOCYTES ABSOLUTE AUTO 1.82 K/mm3 (0.84-5.20); LYMPHOCYTES PERCENT AUTO 25 % (21-46); MONOCYTES ABSOLUTE AUTO 1.01 K/mm3 (0.16-1.47); MONOCYTES PERCENT AUTO 14 % (4-13); Mean Corpuscular HGB Conc 32.8 g/dL (31.5-36.5); Mean Corpuscular Volume 89 fL (80-100); NEUTROPHILS ABSOLUTE AUTO 3.88 K/mm3 (1.96-9.15); NEUTROPHILS PERCENT AUTO 54 % (41-73); NRBC ABSOLUTE 0.00 K/mm3 (0.00-0.02); NRBC Auto 0.0 /100 WBC (0.0-0.2); Platelet Count 226 K/mm3 (150-400); RDW Coefficient Variation 12.8 % (11.7-14.2); RDW Standard Deviation 41.4 fL (35.1-46.3)
[2025-05-19 05:30] VITALS: BP 161/94
--- NOTE | 2025-05-19 05:55 | NUR ---
Shift Summary AOx4. Very cooperative with care. Had to get an order for one-time dose of [place] d/t severe sternum pain (see previous note) which helped tremendously. Patient and I had a discussion about pain management and patient, tearful and with a quavering voice, expressed lack of adequate pain control with the current pain regimen. She is also fearful that if she even wojciech up the idea, the stigma surrounding narcotics would follow her. Advised to discuss concern with her provider as that is the only way she will get any kind of answer. 1PA w/ FWW to bathroom. SCD's on. Last BM 05/18. Otherwise, patient had an uneventful night.
[2025-05-19 06:00] LABS: Anion Gap 9.0 mmol/L (3-11); Blood Urea Nitrogen 12.0 mg/dL (8-24); CO2, Blood 26.0 mmol/L (21-32); Calcium, Blood 8.2 mg/dL (8.5-10.1); Chloride, Blood 107.0 mmol/L (98-108); Creatinine, Blood 1.09 mg/dL (0.40-1.00); Glucose, Blood 172.0 mg/dL (70-99); Potassium, Blood 3.5 mmol/L (3.5-5.5); Sodium, Blood 138.0 mmol/L (136-145)
[2025-05-19 07:35] VITALS: BP 158/97
--- NOTE | 2025-05-19 11:00 | NUR ---
SUPPORTIVE VISIT: MET WITH PT'S SIGNIFICANT OTHER AND SO'S MOTHER AT PT'S BEDSIDE. PT RELUCTANT TO PARTICIPATE IN CONVERSATION. FAMILY EXPRESSED FRUSTRATION RE: PT'S NONCOMPLIANCE WITH MEDICATIONS AND "NOW HER MEDS ARE GOING TO BE ONVER $900 A MONTH." THEY REPORT FRUSTRATION WITH THE CARE GAP FROM ANTICIPATED DISCHARGE HOME AND WHEN THEY EXPECT OHP WILL START ON 05-26-25. SO'S MOTHER SHOWING SIGNS OF CAREGIVER FATIGUE SHE IS THE ONLY MEDICALLY STABLE PERSON OUT OF 4 IN THE HOUSE. "I AM THE ONLY ONE TO TAKE CARE OF ALL OF THEM. LOOK, MY DAUGHTER CAN BARELY WALK AND NOW JAYDA CAN'T HELP. THEY HAVE NO MONEY COMING IN." THERAPUTIC LISTENING. CM REPORTS THEY ARE WORKING ON RESOURCES FOR PT AND FAMILY. PC TO REMAIN AVAILABLE NEEDED.
[2025-05-19] MEDS ORDERED: HYDROcodone 5-APAP 325 TAB PO PRN (11:55)
[2025-05-19 15:42] VITALS: BP 135/77
--- NOTE | 2025-05-19 19:15 | NUR ---
SHIFT SUMMARY CLIENT IS AOX4. MEDICATION COMPLIANT. HAS BOUTS OF STERNAL PAIN SECONDARY TO COUGHING. DID NOT REQUEST NEEDED PAIN MEDICATIONS. SPOKE WITH PROVIDER DURING ROUNDS AND RECEIVED AN ORDER FOR NORCO PRN. BLOOD SUGARS WERE 169,139, & 162 THIS SHIFT. BED IS IN LW POSITION AND CALL LIGHT IS WITHIN REACH
[2025-05-19 19:36] VITALS: BP 136/86
[2025-05-20 02:28] VITALS: BP 146/98
[2025-05-20 07:22] VITALS: BP 145/90
[2025-05-20 11:14] LABS: BASOPHILS ABSOLUTE AUTO 0.05 K/mm3 (0.00-0.23); BASOPHILS PERCENT AUTO 1 % (0-2); EOSINOPHILS ABSOLUTE AUTO 0.57 K/mm3 (0.00-0.68); EOSINOPHILS PERCENT AUTO 8 % (0-6); Hematocrit 34.8 % (33.0-51.0); Hemoglobin 11.1 g/dL (11.5-16.0); IMMATURE GRAN ABSOLUTE AUTO 0.02 K/mm3 (0.00-0.10); IMMATURE GRAN PERCENT AUTO 0 % (0-1); LYMPHOCYTES ABSOLUTE AUTO 3.00 K/mm3 (0.84-5.20); LYMPHOCYTES PERCENT AUTO 42 % (21-46); MONOCYTES ABSOLUTE AUTO 0.71 K/mm3 (0.16-1.47); MONOCYTES PERCENT AUTO 10 % (4-13); Mean Corpuscular HGB Conc 31.9 g/dL (31.5-36.5); Mean Corpuscular Volume 90 fL (80-100); NEUTROPHILS ABSOLUTE AUTO 2.84 K/mm3 (1.96-9.15); NEUTROPHILS PERCENT AUTO 40 % (41-73); NRBC ABSOLUTE 0.00 K/mm3 (0.00-0.02); NRBC Auto 0.0 /100 WBC (0.0-0.2); Platelet Count 246 K/mm3 (150-400); RDW Coefficient Variation 12.7 % (11.7-14.2); RDW Standard Deviation 41.1 fL (35.1-46.3)
[2025-05-20 12:06] LABS: Anion Gap 9.0 mmol/L (3-11); Blood Urea Nitrogen 15.0 mg/dL (8-24); CO2, Blood 25.0 mmol/L (21-32); Calcium, Blood 8.3 mg/dL (8.5-10.1); Chloride, Blood 108.0 mmol/L (98-108); Creatinine, Blood 1.16 mg/dL (0.40-1.00); Glucose, Blood 180.0 mg/dL (70-99); Potassium, Blood 3.4 mmol/L (3.5-5.5); Sodium, Blood 139.0 mmol/L (136-145)
--- NOTE | 2025-05-20 12:12 | NUR ---
Spiritual Care Visit. Pt. is awake in bed and welcomes my visit. Pts. mom and a friend are at bedside. Pt. is unsettled about discharge and insurance issues. Listened with empathy and a calming presence. Seek to normalize the Pt. experience. Pt. displayed evidence of understanding and agreement but remains concerned about being able to afford her prescriptions. Prayed with the Pt. Pt. verbalized gratitude fo rthe spiritual care visit.
[2025-05-20 15:40] VITALS: BP 126/79
--- NOTE | 2025-05-20 17:00 | NUR ---
SHIFT SUMMARY PATIENT A&OX4 AND COOPERATIVE WITH CARE. CASE MANAGEMENT DISCUSSED FINDING MORE AFFORDABLE MEDICATIONS. SPIRTUAL CARE AND PHYSICAL THERAPY WORKED WITH HER TODAY. CURRENT PLAN IS POTENTIAL DISCHARGE TOMORROW. STILL HAS SOME PAIN ON THE CHEST DUE TO COMPRESSIONS. PATIENT IN BED WITH CALL LIGHT IN REACH, NOT IN DISTRESS.
--- NOTE | 2025-05-20 17:57 | NUR ---
THIS DOG CONTROL OFFICER HAS REVIEWED AND AGREES WITH ALL NOTES AND ASSESSMENTS BY KASSY ADAMS.
[2025-05-20 20:49] VITALS: BP 136/83
[2025-05-21 04:54] VITALS: BP 148/84
[2025-05-21 06:34] LABS: BASOPHILS ABSOLUTE AUTO 0.06 K/mm3 (0.00-0.23); BASOPHILS PERCENT AUTO 1 % (0-2); EOSINOPHILS ABSOLUTE AUTO 0.44 K/mm3 (0.00-0.68); EOSINOPHILS PERCENT AUTO 6 % (0-6); Hematocrit 36.0 % (33.0-51.0); Hemoglobin 11.6 g/dL (11.5-16.0); IMMATURE GRAN ABSOLUTE AUTO 0.02 K/mm3 (0.00-0.10); IMMATURE GRAN PERCENT AUTO 0 % (0-1); LYMPHOCYTES ABSOLUTE AUTO 2.80 K/mm3 (0.84-5.20); LYMPHOCYTES PERCENT AUTO 37 % (21-46); MONOCYTES ABSOLUTE AUTO 0.51 K/mm3 (0.16-1.47); MONOCYTES PERCENT AUTO 7 % (4-13); Mean Corpuscular HGB Conc 32.2 g/dL (31.5-36.5); Mean Corpuscular Volume 89 fL (80-100); NEUTROPHILS ABSOLUTE AUTO 3.70 K/mm3 (1.96-9.15); NEUTROPHILS PERCENT AUTO 49 % (41-73); NRBC ABSOLUTE 0.00 K/mm3 (0.00-0.02); NRBC Auto 0.0 /100 WBC (0.0-0.2); Platelet Count 281 K/mm3 (150-400); RDW Coefficient Variation 12.6 % (11.7-14.2); RDW Standard Deviation 41.0 fL (35.1-46.3)
--- NOTE | 2025-05-21 06:40 | NUR ---
PRN TYLENOL WAS GIVEN FOR BACK AND CHEST PAIN. NO ACUTE ISSUES OVER NIGHT. VITALS STABLE.
[2025-05-21 06:56] LABS: Anion Gap 9.0 mmol/L (3-11); Blood Urea Nitrogen 17.0 mg/dL (8-24); CO2, Blood 27.0 mmol/L (21-32); Calcium, Blood 8.7 mg/dL (8.5-10.1); Chloride, Blood 109.0 mmol/L (98-108); Creatinine, Blood 1.15 mg/dL (0.40-1.00); Glucose, Blood 110.0 mg/dL (70-99); Potassium, Blood 3.5 mmol/L (3.5-5.5); Sodium, Blood 141.0 mmol/L (136-145)
[2025-05-21 07:04] VITALS: BP 145/98
--- NOTE | 2025-05-21 08:00 | NUR ---
ATTEMPTED SUPPORTIVE VISIT. VISIT DECLINED BY PATIENT. PC TO REMAIN AVAILABLE NEEDED.
[2025-05-21] MEDS ORDERED: ACET325 PO (13:27)
[2025-05-21] MEDS ORDERED: AMLO5 PO (13:27)
[2025-05-21] MEDS ORDERED: Norco 5-325 Ta1 EACH PO (13:28)
[2025-05-21] MEDS ORDERED: LOSA50 PO (13:29)
[2025-05-21] MEDS ORDERED: INSULANPEN SC (13:29)
[2025-05-21] MEDS ORDERED: LIDO700A20 TOP (13:29)
--- NOTE | 2025-05-21 14:52 | NUR ---
Patient discharged home with family. All medication/education and instruction discussed with patient prior to discharge. All belongings given to patient and patient wheeled out to entrance via wheelchair. Hard scripts given to patient.
--- NOTE | 2025-05-22 01:11 | NUR ---
reviewed information for questions from donor referal which patient had previously been evaluated for.
== END 2025-05-21 14:33 | disposition home health service (06) | DRG 637 ==
LOC: ER 00:26 → ERHOLD 02:29 → MEDS 02:29 → ICUE 02:29 → MEDS 04:03 → ICUE 04:09 → PCU 05-11 18:08 → MEDS 05-13 11:52 → ENPENDDIS 05-21 12:38 → MEDS 05-21 14:33
PROVIDERS: Hospitalist; Internal Medicine Critical Care Medicine; Student in an Organized Health Care Education/Training Program; ADMIT Student in an Organized Health Care Education/Training Program
PROC: 5A12012 Performance of Cardiac Output, Single, Manual (ICD-10-PCS; principal; 2025-05-07)
PROC: 0BH17EZ Insertion of Endotracheal Airway into Trachea, Via Natural or Artificial Opening (ICD-10-PCS; 2025-05-07)
PROC: 3E033XZ Introduction of Vasopressor into Peripheral Vein, Percutaneous Approach (ICD-10-PCS; 2025-05-07)
PROC: 5A09357 Assistance with Respiratory Ventilation, Less than 24 Consecutive Hours, Continuous Positive Airway Pressure (ICD-10-PCS; 2025-05-07)
PROC: 0DH67UZ Insertion of Feeding Device into Stomach, Via Natural or Artificial Opening (ICD-10-PCS; 2025-05-07)
PROC: 04HY32Z Insertion of Monitoring Device into Lower Artery, Percutaneous Approach (ICD-10-PCS; 2025-05-07)
PROC: 4A133B1 Monitoring of Arterial Pressure, Peripheral, Percutaneous Approach (ICD-10-PCS; 2025-05-07)
PROC: 4A133J1 Monitoring of Arterial Pulse, Peripheral, Percutaneous Approach (ICD-10-PCS; 2025-05-07)
PROC: 5A1935Z Respiratory Ventilation, Less than 24 Consecutive Hours (ICD-10-PCS; 2025-05-07)
PROC: 0T9B70Z Drainage of Bladder with Drainage Device, Via Natural or Artificial Opening (ICD-10-PCS; 2025-05-07)
PROC: 02HV33Z Insertion of Infusion Device into Superior Vena Cava, Percutaneous Approach (ICD-10-PCS; 2025-05-07)
PROC: 3E03329 Introduction of Other Anti-infective into Peripheral Vein, Percutaneous Approach (ICD-10-PCS; 2025-05-08)
DX: E11.10 Type 2 diabetes mellitus with ketoacidosis without coma (principal); I46.2 Cardiac arrest due to underlying cardiac condition; J96.01 Acute respiratory failure with hypoxia; R57.1 Hypovolemic shock; J18.9 Pneumonia, unspecified organism; E87.1 Hypo-osmolality and hyponatremia; I31.39 Other pericardial effusion (noninflammatory); Z68.41 Body mass index [BMI] 40.0-44.9, adult; I10 Essential (primary) hypertension; Z91.148 Patient's other noncompliance with medication regimen for other reason; F41.8 Other specified anxiety disorders; E87.6 Hypokalemia; E66.9 Obesity, unspecified; D72.829 Elevated white blood cell count, unspecified; D72.825 Bandemia; E83.39 Other disorders of phosphorus metabolism; I80.8 Phlebitis and thrombophlebitis of other sites; R54 Age-related physical debility; E11.65 Type 2 diabetes mellitus with hyperglycemia; Z79.4 Long term (current) use of insulin; Z79.84 Long term (current) use of oral hypoglycemic drugs; Z79.891 Long term (current) use of opiate analgesic; Z79.899 Other long term (current) drug therapy; Z90.89 Acquired absence of other organs; Z98.890 Other specified postprocedural states; Z96.22 Myringotomy tube(s) status; Z79.1 Long term (current) use of non-steroidal anti-inflammatories (NSAID)
CPT/HCPCS: 31500; 36415; 36620; 71045; 80048; 80053; 80069; 80202; 81001; 82010; 82330; 82803; 82947; 83036; 83605; 83735; 83880; 84100; 84132; 84145; 84443; 84484; 84681; 85025; 85610; 85611; 85730; 86140; 87040; 87070; 87205; 87637; 93005; 93010; 93306; 93308; 93321; 93971; 94002; 94003; 94660; 94664; 94760; 94762; 97110; 97116; 97162; 97165; 97530; 97535; A9270; C1751; J0165; J0282; J0612; J0696; J1171; J1265; J1650; J1815; J1938; J2250; J2405; J2470; J2704; J3373; J3475; J3480; J7040; J7042; J7050; J7060; J7070; J7120; J7799; P9047

== ENCOUNTER → 2025-06-02 | Outpatient (CLI) | payer OTHER ==
[~2025-06-02] MED LIST changes: +ACET325 PO; +AMLO5 PO; +INSULANPEN SC; +LIDO700A20 TOP; +LOSA50 PO; +Norco 5-325 Ta1 EACH PO
[2025-06-02 20:14] LABS: Creatinine, Urine Random 38.3 mg/dL (27.00-270.00); Protein, Urine Random 22.9 mg/dL (0.0-11.9); Protein/Creat Ratio, Ur Random 0.6
== END ==
LOC: LAB 15:01 → LAB SHORT 15:01
DX: E11.65 Type 2 diabetes mellitus with hyperglycemia (principal); Z79.4 Long term (current) use of insulin
CPT/HCPCS: 82570; 84156